=== PATIENT | female | born 1990 | race Caucasian/White ===

== ENCOUNTER 2016-08-03 13:04 | Emergency (ER) | payer SELFPAY ==
[2016-08-03 13:16] VITALS: BP 112/62
[2016-08-03] MEDS ORDERED: Ondansetron 4 MG/2 ML SDV IVPUSH ONE (13:26)
[2016-08-03] MEDS ORDERED: Sodium Chloride 0.9% 10 ML Syringe FLUSH PRN (13:26)
[2016-08-03] MEDS ORDERED: Sodium Chloride 0.9% 1,000 ML IV SCH (13:30)
--- NOTE | 2016-08-03 13:48 | EDM.PDOC ---
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 She is about 10 weeks . She is one para zero and is not had her first visit. He has been having difficulty with nausea intermittently for several weeks but more severe yesterday and today to the point of intermittent vomiting. She presented to [place] [facility] and with her being they referred her here to the ED - Related Data Allergies Allergy/AdvReac Type Severity Reaction Status Date / Time No Known Allergies Allergy Verified 08/03/16 13:11 Home Meds: Home Meds . [No Known Home Meds] 08/03/16 [History] Past Medical History - Past Health History Medical/Surgical History: Denies Medical/Surgical History Social & Family History - Tobacco Use Smoking Status *Q: Never Smoker - Recreational Drug Use Recreational Drug Use: No ED ROS GENERAL - Review of Systems Review Of Systems: See Below Constitutional: Denies: Fever, Chills, Diaphoresis HEENT: Denies: Sinus Problem, Throat Pain Respiratory: Denies: Shortness of Breath, Pleuritic Chest Pain Cardiovascular: Denies: Chest Pain GI/Abdominal: Reports: Nausea, Vomiting. Denies: Abdominal Pain, Diarrhea Musculoskeletal: Reports: No Symptoms Skin: Reports: No Symptoms Neurological: Reports: No Symptoms ED EXAM - Physical Exam Exam: See Below General Appearance: Alert, No Apparent Distress Throat/Mouth: Normal Inspection, Normal Oropharynx Head: Atraumatic Neck: Supple, Full Range of Motion Respiratory/Chest: No Respiratory Distress, Lungs Clear, Normal Breath Sounds Cardiovascular: Regular Rate, Rhythm GI/Abdominal: Soft, Non-Tender. No: Guarding, Rebound Extremities: No: Pedal Edema, Leg Pain Neurological: Alert, Oriented, No Motor/Sensory Deficits Skin Exam: Warm, Dry, Normal Color Course - Vital Signs Last Recorded V/S: Last Vital Signs Temp 98.7 F 08/03/16 13:11 Pulse 80 08/03/16 13:11 Resp 18 08/03/16 13:11 BP 112/62 08/03/16 13:11 Pulse Ox 99 08/03/16 13:11 Orthostatic Blood Pressure [ 111/77 Standing] Orthostatic Blood Pressure [ 112/62 Supine] - Orders/Labs/Meds Orders: Active Orders 24 hr Category Date Time Status Peripheral IV Care [RC] . DIRECTED Care 08/03/16 13:27 Active Sodium Chloride 0.9% [Normal Saline] 1,000 ml Med 08/03/16 13:30 Active IV ONETIME Sodium Chloride 0.9% [Saline Flush] Med 08/03/16 13:26 Active 10 ml FLUSH ASDIRECTED PRN Peripheral IV Insertion Adult [OM.PC] Stat Oth 08/03/16 13:26 Ordered Medication Orders Sodium Chloride (Normal Saline) 1,000 mls @ 999 mls/hr IV ONETIME JAYDE Last Admin: 08/03/16 13:57 Dose: 999 mls/hr Sodium Chloride (Saline Flush) 10 ml FLUSH ASDIRECTED PRN PRN Reason: Keep Vein Open Last Admin: 08/03/16 13:58 Dose: 10 ml Labs: Laboratory Tests 08/03/16 Range/Units 14:00 Urine Color Yellow (Yellow) Urine Appearance Clear (Clear) Urine pH 7.0 (5.0-8.0) Ur Specific Wiley 1.015 (1.005-1.030) Urine Protein Negative (Negative) Urine Glucose (UA) Negative (Negative) Urine Ketones Negative (Negative) Urine Occult Blood Negative (Negative) Urine Nitrite Negative (Negative) Urine Bilirubin Negative (Negative) Urine Urobilinogen 0.2 (0.2-1.0) Ur Leukocyte Esterase Negative (Negative) Urine RBC Not seen (0-5) /hpf Urine WBC 0-5 (0-5) /hpf Ur Epithelial Cells Not Reportable Ur Squamous Epith Cells 0-5 (0-5) /hpf Urine Bacteria Not seen (FEW) /hpf Urine Mucus Not seen (FEW) /hpf Meds: Medications Generic Name Dose Route Start Last Admin Trade Name Freq PRN Reason Stop Dose Admin Sodium Chloride 1,000 mls @ 999 mls/hr 08/03/16 13:30 08/03/16 13:57 Normal Saline IV 999 mls/hr ONETIME JAYDE Administration Sodium Chloride 10 ml 08/03/16 13:26 08/03/16 13:58 Saline Flush FLUSH 10 ml ASDIRECTED PRN Administration Keep Vein Open Discontinued Medications Generic Name Dose Route Start Last Admin Trade Name Travis PRN Reason Stop Dose Admin Ondansetron HCl 4 mg 08/03/16 13:26 08/03/16 13:58 Zofran IVPUSH 08/03/16 13:27 4 mg ONETIME ONE Administration - Re-Assessments/Exams Free Text/Narrative Re-Assessment/Exam: 08/03/16 14:47. Patient is doing okay with no further vomiting while here in the ED. She was doing some reading and has concerns about preeclampsia. her blood pressures have been good here in the ED and a one 12/62 range. Did explain to her that this will become more of a concern and possible risk as she gets into the second half of her . We'll continue her 1 L of normal saline. UA is normal. Discharge instructions as documented Departure - Departure Time of Disposition: 15:00 Disposition: Home, Self-Care 01 Condition: fair Clinical Impression: First trimester Vomiting Qualifiers: Vomiting type: unspecified Vomiting Intractability: non-intractable Nausea presence: with nausea Qualified Code(s): R11.2 - Nausea with vomiting, unspecified - Discharge Information Referrals: Jackson Escalona MD [Primary Care Provider] - Forms: ED Department Discharge Additional Instructions: Clear liquids for the next 2-3 hours, then very careful bland diet as tolerated , it will be best to eat very small amounts of bland food frequently as tolerated, see Dr. Ward next week as planned, return to ED as needed. - My Orders Last 24 Hours: My Active Orders 08/03/16 13:26 Sodium Chloride 0.9% [Saline Flush] 10 ml FLUSH ASDIRECTED PRN Peripheral IV Insertion Adult [OM.PC] Stat 08/03/16 13:27 Peripheral IV Care [RC] . DIRECTED 08/03/16 13:30 Sodium Chloride 0.9% [Normal Saline] 1,000 ml IV ONETIME - Assessment/Plan Last 24 Hours: My Active Orders 08/03/16 13:26 Sodium Chloride 0.9% [Saline Flush] 10 ml FLUSH ASDIRECTED PRN Peripheral IV Insertion Adult [OM.PC] Stat 08/03/16 13:27 Peripheral IV Care [RC] . DIRECTED 08/03/16 13:30 Sodium Chloride 0.9% [Normal Saline] 1,000 ml IV ONETIME
== END 2016-08-03 15:45 | disposition home or self-care (01) ==
LOC: JD.ED 13:04
DX: O21.9 Vomiting of pregnancy, unspecified (principal); Z3A.10 10 weeks gestation of pregnancy
CPT/HCPCS: 81001; 96361; 96374; 99284; J2405; J7040; J7050

== ENCOUNTER 2017-03-06 10:47 | Inpatient (IN) | payer OTHER ==
[2017-03-06] MEDS ORDERED: Sodium Chloride 0.9% 10 ML Syringe FLUSH PRN (11:20)
[2017-03-06] MEDS ORDERED: Ondansetron 4 MG/2 ML SDV IVPUSH PRN ×2 (11:20→12:18)
[2017-03-06] MEDS ORDERED: Nalbuphine 20 MG/1 ML Amp IVPUSH PRN (11:20)
[2017-03-06] MEDS: Misoprostol 25 MCG (1/4 of 100 MCG) Tab VAG SCH ×3 (12:05→20:26)
--- NOTE | 2017-03-06 12:13 | PCM.LDHP ---
L&D History of Present Illness - General Date of Service: 03/06/17 Admit Problem/Dx: Admission Diagnosis/Problem Admission Diagnosis/Problem Source of Information: Patient History Limitations: Reports: No Limitations - History of Present Illness Introduction:: 26-year-old 000 PHILIP 03/01/17 at estimated gestational age of 40 weeks and 5 days. Group B strep negative patient presented to labor and delivery for induction of labor. First 25 g Cytotec placed at 1205 hrs. approximately intravaginal. Will repeat every 4 hours 3 doses total and then begin Pitocin at midnight. Cervix is 1 cm 50% soft posterior vertex -3. Blood type A positive antibody screen negative on 08/07/16 hemoglobin hematocrit 12.2/36.5 platelets 260,000. Pap test negative rubella immune, serology nonreactive, urine culture mixed radha, appetite is B surface antigen negative, HIV negative, GC and chlamydia probe negative. 12/05/16 hemoglobin hematocrit 9.5/29.2 platelets 230, 001 hour OB glucose screen 124. Repeat hemoglobin hematocrit 02/03/17 showed 10.0/30.9 platelets 219,000. Ultrasound 08/29/16 at 13 weeks 2 days estimated gestational age of 12/12/17, LMP PHILIP 03/01/17. Ultrasound on 10/18/16 at 20 weeks 5 days estimated gestational age 20 weeks 5 days and PHILIP 03/02/17. Ultrasound on 02/17/17 PHILIP of 03/01/17 estimated gestational age 38 weeks 2 days. Improves with: Reports: None Worsens with: Reports: None Associated Symptoms: Reports: N - Related Data Allergies/Adverse Reactions: Allergies Allergy/AdvReac Type Severity Reaction Status Date / Time No Known Allergies Allergy Verified 08/03/16 13:11 Home Medications: Home Meds . [No Known Home Meds] 08/03/16 [History] Past Medical History - Past Health History Medical/Surgical History: Denies Medical/Surgical History : 1 Para: 0 (0000) Social & Family History - Tobacco Use Smoking Status *Q: Never Smoker - Recreational Drug Use Recreational Drug Use: No H&P Review of Systems - Review of Systems: Review Of Systems: See Below General: Reports: No Symptoms HEENT: Reports: No Symptoms Pulmonary: Reports: No Symptoms Cardiovascular: Reports: No Symptoms Gastrointestinal: Reports: No Symptoms Genitourinary: Reports: No Symptoms Musculoskeletal: Reports: No Symptoms Skin: Reports: No Symptoms Psychiatric: Reports: No Symptoms Neurological: Reports: No Symptoms Hematologic/Lymphatic: Reports: No Symptoms Immunologic: Reports: No Symptoms L&D Exam - Exam Exam: See Below - Vital Signs Weight: 241 lb 11.2 oz - OB Specific Fundal Height In cm: 39 Movement: Active Heart Tones: Present Heart Tones per Min: 130 Heart Rate (FHR) Variability: Moderate (6-25 bmp) Presentation: Vertex - Holder Score Holder Score Cervix Position: Posterior Holder Score Consistency: Soft Holder Score Effacement: 31-50% Holder Score Dilation: 1-2 cm Holder Score 's Station: -3 Holder Score Total: 4 - Exam General: Alert, Oriented HEENT: Conjunctiva Clear, Mucosa Moist & [place], PERRLA Neck: Supple, Trachea Midline Lungs: Clear to Auscultation, Normal Respiratory Effort Cardiovascular: Regular Rate, Regular Rhythm GI/Abdominal Exam: Normal Bowel Sounds, Soft, Non-Tender, No Organomegaly, No Distention, No Abnormal Bruit, No Mass, Pelvis Stable Genitourinary: Normal external exam, Normal bimanual exam, Normal speculum exam Extremities: Normal Inspection, Normal Range of Motion, Non-Tender, No Pedal Edema, Normal Capillary Refill Skin: Warm, Dry, Intact Neurological: Reflexes Equal Bilateral Psychiatric: Alert, Normal Affect, Normal Mood - Problem List (1) 40 weeks gestation of SNOMED Code(s): 31790816 ICD Code: Z3A.40 - 40 WEEKS GESTATION OF Status: Acute Current Visit: Yes Problem List Initiated/Reviewed/Updated: No Orders Last 24hrs: Active Orders 24 hr Category Date Time Status Activity as Tolerated [RC] PFP Care 03/06/17 11:21 Active Communication Order [RC] ASDIRECTED Care 03/06/17 11:21 Active Heart Tones [RC] ASDIRECTED Care 03/06/17 11:21 Active Notify Provider [RC] PFP Care 03/06/17 11:21 Active Notify Provider [RC] PRN Care 03/06/17 11:21 Active Peripheral IV Care [RC] . DIRECTED Care 03/06/17 11:21 Active Vital Signs [RC] PER UNIT ROUTINE Care 03/06/17 11:21 Active Regular Diet [DIET] Diet 03/06/17 Breakfast Active CBC WITH AUTO DIFF [HEME] Stat Lab 03/06/17 11:39 Ordered TYPE AND SCREEN [BBK] Stat Lab 03/06/17 11:39 Ordered Lactated Ringers [Ringers, Lactated] 1,000 ml Med 03/06/17 11:30 Active IV ASDIRECTED Misoprostol [Cytotec] Med 03/06/17 13:00 Active 25 mcg VAG Q4HR Nalbuphine [Nubain] Med 03/06/17 11:20 Active 10 mg IVPUSH Q2H PRN Ondansetron [Zofran] Med 03/06/17 11:20 Active 4 mg IVPUSH Q4H PRN Oxytocin [Pitocin] 20 unit Med 03/06/17 12:00 Active Lactated Ringers [Ringers, Lactated] 1,000 ml IV TITRATE Oxytocin/Lactated Ringers [Pitocin in LR 10 Units/1,000 Med 03/06/17 11:30 Active ML] 10 unit in 1,000 ml IV TITRATE Sodium Chloride 0.9% [Saline Flush] Med 03/06/17 11:20 Active 10 ml FLUSH ASDIRECTED PRN Electronic Heart Tones Ext w TOCO [WOMSER] Oth 03/06/17 11:21 Ordered Routine Electronic Heart Tones Internal [WOMSER] Per Unit Oth 03/06/17 11:21 Ordered Routine Peripheral IV Insertion Adult [OM.PC] Routine Oth 03/06/17 11:21 Ordered Resuscitation Status Routine Resus Stat 03/06/17 11:20 Ordered Medication Orders Lactated Ringer's (Ringers, Lactated) 1,000 mls @ 100 mls/hr IV ASDIRECTED JAYDE Oxytocin/Lactated Ringer's (Pitocin In Lr 10 Units/1,000 Ml) 10 unit in 1,000 mls @ 12 mls/hr IV TITRATE JAYDE; 2 MUNITS/MIN PRN Reason: Protocol Oxytocin 20 unit/ Lactated (Ringer's) 1,002 mls @ 1,503 mls/hr IV TITRATE JAYDE; 500 MUNITS/MIN PRN Reason: Protocol Misoprostol (Cytotec) 25 mcg VAG Q4HR JAYDE Stop: 03/06/17 21:01 Last Admin: 03/06/17 12:05 Dose: 25 mcg Nalbuphine HCl (Nubain) 10 mg IVPUSH Q2H PRN PRN Reason: Pain (moderate 4-6) Ondansetron HCl (Zofran) 4 mg IVPUSH Q4H PRN PRN Reason: Nausea/Vomiting Sodium Chloride (Saline Flush) 10 ml FLUSH ASDIRECTED PRN PRN Reason: Keep Vein Open Assessment/Plan Comment:: Induction of labor and delivery.
[2017-03-06] MEDS ORDERED: ePHEDrine 50 MG/ML SDV IVPUSH PRN (12:18)
[2017-03-06] MEDS ORDERED: fentaNYL 100 MCG/2 ML SDV EPIDUR PRN (12:18)
--- NOTE | 2017-03-06 14:36 | PCM.PREANE ---
Preanesthetic Assessment - Anesthesia/Transfusion/Family Hx Anesthesia History: No Prior Anesthesia Family History of Anesthesia Reaction: No Transfusion History: No Prior Transfusion(s) Intubation History: Unknown - Review of Systems General: No Symptoms Pulmonary: No Symptoms Cardiovascular: No Symptoms Gastrointestinal: No Symptoms, Nausea Neurological: No Symptoms (History of motion sickness) Other: Reports: None, Sinus Problem, Anxiety - Physical Assessment NPO Status Date: 03/06/17 NPO Status Time: 14:00 Pulse: 80 O2 Sat by Pulse Oximetry: 99 Respiratory Rate: 20 Blood Pressure: 121/71 Temperature: 36.4 C Height: 1.57 m Weight: 109.633 kg ASA Class: 2 Mental Status: Alert & Oriented x3 Airway Class: Mallampati = 2 Dentition: Reports: Normal Dentition, Caries Thyro-Mental Finger Breadths: 3 Mouth Opening Finger Breadths: 3 ROM/Head Extension: Full Lungs: Clear to Auscultation, Normal Respiratory Effort Cardiovascular: Regular Rate, Regular Rhythm, No Murmurs - Lab Values: Laboratory Last Values WBC 9.73 K/mm3 (3.98-10.04) 03/06/17 12:05 RBC 3.80 M/mm3 (3.98-5.22) L 03/06/17 12:05 Hgb 10.6 gm/L (11.2-15.7) L 03/06/17 12:05 Hct 32.9 % (34.1-44.9) L 03/06/17 12:05 MCV 86.6 fl (79.4-94.8) 03/06/17 12:05 MCH 27.9 pg (25.6-32.2) 03/06/17 12:05 MCHC 32.2 g/dl (32.2-35.5) 03/06/17 12:05 RDW Std Deviation 53.7 fL (36.4-46.3) H 03/06/17 12:05 Plt Count 196 K/mm3 (182-369) 03/06/17 12:05 MPV 11.1 fl (9.4-12.3) 03/06/17 12:05 Neut % (Auto) 65.1 % (34.0-71.1) 03/06/17 12:05 Lymph % (Auto) 24.6 % (19.3-51.7) 03/06/17 12:05 [place] % (Auto) 8.2 % (4.7-12.5) 03/06/17 12:05 Eos % (Auto) 0.9 (0.7-5.8) 03/06/17 12:05 Baso % (Auto) 0.3 % (0.1-1.2) 03/06/17 12:05 Neut # (Auto) 6.33 K/mm3 (1.56-6.13) H 03/06/17 12:05 Lymph # (Auto) 2.39 K/mm3 (1.18-3.74) 03/06/17 12:05 [place] # (Auto) 0.80 K/mm3 (0.24-0.36) H 03/06/17 12:05 Eos # (Auto) 0.09 K/mm3 (0.04-0.36) 03/06/17 12:05 Baso # (Auto) 0.03 K/mm3 (0.01-0.08) 03/06/17 12:05 Manual Slide Review Abnormal smear 03/06/17 12:05 Blood Type A POSITIVE 03/06/17 12:05 Gel Antibody Screen Negative 03/06/17 12:05 All Labs values reviewed and noted and within acceptable ranges to proceed with procedure. - Allergies Allergies/Adverse Reactions: Allergies Allergy/AdvReac Type Severity Reaction Status Date / Time No Known Allergies Allergy Verified 08/03/16 13:11 - Anesthesia Plan Pre-Op Medication Ordered: None - Acknowledgements Anesthesia Type Planned: Epidural Pt an Appropriate Candidate for the Planned Anesthesia: Yes Alternatives and Risks of Anesthesia Discussed w Pt/Guardian: Yes Pt/Guardian Understands and Agrees with Anesthesia Plan: Yes PreAnesthesia Questionnaire - Past Health History Medical/Surgical History: Denies Medical/Surgical History - SUBSTANCE USE Smoking Status *Q: Never Smoker Recreational Drug Use History: No - HOME MEDS Home Medications: Home Meds . [No Known Home Meds] 08/03/16 [History] - CURRENT (IN HOUSE) MEDS Current Meds: Current Medications Ephedrine Sulfate (Ephedrine Sulfate) 5 mg IVPUSH ASDIRECTED PRN PRN Reason: Hypotension Fentanyl (Sublimaze) 100 mcg EPIDUR Q3H PRN PRN Reason: Pain Lactated Ringer's (Ringers, Lactated) 1,000 mls @ 100 mls/hr IV ASDIRECTED JAYDE Oxytocin/Lactated Ringer's (Pitocin In Lr 10 Units/1,000 Ml) 10 unit in 1,000 mls @ 12 mls/hr IV TITRATE JAYDE; 2 MUNITS/MIN PRN Reason: Protocol Oxytocin 20 unit/ Lactated (Ringer's) 1,002 mls @ 1,503 mls/hr IV TITRATE JAYDE; 500 MUNITS/MIN PRN Reason: Protocol Misoprostol (Cytotec) 25 mcg VAG Q4HR JAYDE Stop: 03/06/17 21:01 Last Admin: 03/06/17 12:05 Dose: 25 mcg Nalbuphine HCl (Nubain) 10 mg IVPUSH Q2H PRN PRN Reason: Pain (moderate 4-6) Ondansetron HCl (Zofran) 4 mg IVPUSH Q4H PRN PRN Reason: Nausea/Vomiting Ondansetron HCl (Zofran) 4 mg IVPUSH ONETIME PRN PRN Reason: Nausea/Vomiting Sodium Chloride (Saline Flush) 10 ml FLUSH ASDIRECTED PRN PRN Reason: Keep Vein Open
[2017-03-07] MEDS: Lactated Ringers 1,000 ML IV SCH ×6 (00:15→14:26)
[2017-03-07] MEDS: Oxytocin/Lactated Ringers 10 UNIT/1,000 ML BAG IV SCH ×3 (00:22→23:17)
--- NOTE | 2017-03-07 08:53 | PCM.SN ---
- Free Text/Narrative Note: Afebrile. Amniotomy performed, clear fluid. Cervix 2, 60%, soft, posterior, vertex-2 Cat I FHR.
[2017-03-07] MEDS ORDERED: diphenhydrAMINE 50 MG/ML SDV IVPUSH PRN (10:18)
[2017-03-07] MEDS: Bupivacaine/fentaNYL/NS 100 ML Bag EPIDUR SCH ×2 (11:05→19:08)
--- NOTE | 2017-03-07 15:19 | PCM.SN ---
- Free Text/Narrative Note: Cervix at 1455 3 cm, 70% effaced, soft, mid-position, vertex -1 suspect occiput posterior. EFW 9 pounds. IUPC placed after exam. Contractions q2-4, appear adequate. Discussed progress (or lack thereof) and size of baby (FOB weighed 13 pounds at delivery).EFW on 02/17/17 USG 3486 gms/7#11 oz . Discussed possible section if need be.
--- NOTE | 2017-03-07 17:01 | PCM.SN ---
- Free Text/Narrative Note: Cervix has changed from 1500 exam. Now 4-5, 90-100% effaced, soft, mid- position. Vertex -1. Having adequate contractions. Cat I FHR. Dr Cannon given report and will assume care. Patient informed of his assuming coverage and she and in agreement.
--- NOTE | 2017-03-07 22:08 | PCM.SN ---
- Free Text/Narrative Note: Ester is a 26-year-old 1 para 1001 white female was admitted on at approximately 1100 hrs. for elective induction of labor at 40-4/7 weeks gestational age. She initially was treated with Cytotec and then with Pitocin and artificial rupture membranes. She made very slow progress until approximately 5 PM on 03/07/2017 at which time, after an epidural was placed, the patient did progress up to 5 cm and then from that point on progressed fairly rapidly up to complete cervical dilation by approximately 2000 hrs. She began pushing at that time and at 2127 hrs. she delivered a viable, knowles, male infant with a weight of 4060 g (8 pounds 15.2 ounces), a length of 21.5 inches in a direct occiput anterior position over a second-degree perineal laceration and an accompanying right medial labia minora laceration which was superficial in nature. After delivery of the baby the baby was placed on mom's abdomen. Nose and mouth were bulb suctioned baby was dried and stimulated. The umbilical cord was clamped 2 and cut the patient's . Cord blood is then obtained. The placenta delivered in a [place] presentation, appeared complete and intact. It had a three-vessel cord. It was discarded per patient desire. Estimated blood loss was approximately 500 mL. Pitocin was started after delivery of the baby to facilitate increase in uterine tone and decreased bleeding. The lacerations were repaired with a perineal laceration repair a routine second- degree laceration repair with 3-0 Monocryl. The right labia minor are laceration was repaired with 2 interrupted sutures of 3-0 Monocryl. Patient plans to breast-feed the baby. Condition was good.
[2017-03-07] MEDS ORDERED: Acetaminophen 325 MG Tab PO PRN (22:59)
[2017-03-07] MEDS ORDERED: Witch Hazel Medicated Pads 100/Jar TOP PRN (22:59)
[2017-03-07] MEDS ORDERED: Benzocaine/Menthol 20%-0.5% Spray 56 GM Canister TOP PRN (22:59)
[2017-03-07] MEDS ORDERED: Lanolin 100% Cream 7 GM Tube TOP PRN (22:59)
[2017-03-08] MEDS: Ibuprofen 600 MG Tab PO PRN ×3 (01:52→14:38)
[2017-03-08] MEDS: Prenatal Multivitamin with Calcium/Folic Acid/Iron Tab PO SCH (09:14)
--- NOTE | 2017-03-08 09:51 | PCM.SN ---
- Free Text/Narrative Note: day onedoing well. Patient has minimal lochia, was voiding well, is ambulating without concerns he is nursing. Vital signs stable, patient is afebrile. Abdomen is soft, flat, nontender with uterus just below the umbilicus. Legs show 1+ edema otherwise are unremarkable. Assessment/end: day 1. Normal progress. Home tomorrow.
--- NOTE | 2017-03-08 11:08 | PCM48HPAN ---
Post Anesthesia Note - EVALUATION WITHIN 48HRS OF ANESTHETIC Vital Signs in Normal Range: Yes Patient Participated in Evaluation: Yes Respiratory Function Stable: Yes Airway Patent: Yes Cardiovascular Function Stable: Yes Hydration Status Stable: Yes Pain Control Satisfactory: Yes Nausea and Vomiting Control Satisfactory: Yes Mental Status Recovered: Yes
[2017-03-08] MEDS: Docusate Sodium 100 MG Cap PO PRN (20:58)
[2017-03-09] MEDS: Ibuprofen 600 MG Tab PO PRN (03:04)
[2017-03-09 09:52] VITALS: BP 125/76
[2017-03-09] MEDS: Prenatal Multivitamin with Calcium/Folic Acid/Iron Tab PO SCH (09:58)
--- NOTE | 2017-03-09 10:07 | PCM.DCSUM1 ---
Discharge Summary - Hospital Course Free Text/Narrative:: Ester is a 26-year-old 1 para 1001 white female was admitted on at approximately 1100 hrs. for elective induction of labor at 40-4/7 weeks gestational age. She initially was treated with Cytotec and then with Pitocin and artificial rupture membranes. She made very slow progress until approximately 5 PM on 03/07/2017 at which time, after an epidural was placed, the patient did progress up to 5 cm and then from that point on progressed fairly rapidly up to complete cervical dilation by approximately 2000 hrs. She began pushing at that time and at 2127 hrs. she delivered a viable, knowles, male with a weight of 4060 g (8 pounds 15.2 ounces), a length of 21.5 inches in a direct occiput anterior position over a second-degree perineal laceration and an accompanying right medial labia minora laceration which was superficial in nature. After delivery of the baby the baby was placed on mom's abdomen. Nose and mouth were bulb suctioned baby was dried and stimulated. The umbilical cord was clamped 2 and cut the patient's . Cord blood is then obtained. The placenta delivered in a [place] presentation, appeared complete and intact. It had a three-vessel cord. It was discarded per patient desire. Estimated blood loss was approximately 500 mL. Pitocin was started after delivery of the baby to facilitate increase in uterine tone and decreased bleeding. The lacerations were repaired with a perineal laceration repair a routine second- degree laceration repair with 3-0 Monocryl. The right labia minor are laceration was repaired with 2 interrupted sutures of 3-0 Monocryl. Patient plans to breast-feed the baby. Vital signs stable. Patient is doing well. She is ready for discharge. - Discharge Data Discharge Date: 03/09/17 Discharge Disposition: Home, Self-Care 01 Condition: Good - Patient Instructions Diet: Regular Diet as Tolerated (Nursing diet with increased calories and calcium is recommended) Activity: As Tolerated (No intercourse or tampons until bleeding resolves) Driving: May Drive Today Showering/Bathing: May Shower (May take a bath) Notify Provider of: Fever, Increased Pain, Swelling and Redness, Nausea and/or Vomiting - Discharge Plan Home Medications: Home Meds Ibuprofen [IJD: Ibuprofen] 600 mg PO Q4H PRN tablet 03/09/17 [Rx] Vit with Ca/FA/Iron [ Plus Iron] 1 each PO DAILY tablet [Rx] Patient Handouts: Home Care Instructions for Mom Referrals: Jackson Escalona MD [Physician] - (call and schedule appointment for 2 weeks) - Discharge Summary/Plan Comment DC Time >30 min.: No Discharge Summary/Plan Comment: Discharge instructions: 1. Discharge home 2. Diet, activity and follow-up discussed with patient. Recommend nursing diet with increased calories and calcium. 3. Precautions given concern increased pain, bleeding, temperature, signs/ symptoms of DVT/PE. 4. Medications per home medication was printed, discussed with and given to the patient. 5. Return to clinic-Dr. Escalona[facility] in 2 weeks. Diagnosis: Term -delivered Condition: Good - Patient Data Vitals - Most Recent: Last Vital Signs Temp 36.5 C 03/09/17 07:57 Pulse 77 03/09/17 07:57 Resp 16 03/09/17 07:57 BP 125/76 03/09/17 07:57 Pulse Ox 100 03/09/17 07:57 Weight - Most Recent: 109.633 kg I&O - Last 24 hours: Intake & Output 03/08/17 03/09/17 03/09/17 22:59 06:59 14:59 Intake Total 0 Balance 0 Med Orders - Current: Current Medications Acetaminophen (Tylenol) 650 mg PO Q4H PRN PRN Reason: mild pain or fever Benzocaine/Menthol (Dermoplast Pain Relief [place]) 0 gm TOP ASDIRECTED PRN PRN Reason: Perineal Comfort Measure Last Admin: 03/08/17 01:52 Dose: 1 applic Docusate Sodium (Colace) 100 mg PO BID PRN PRN Reason: Constipation Last Admin: 03/08/17 20:58 Dose: 100 mg Emollient Ointment (Lansinoh Hpa) 0 gm TOP ASDIRECTED PRN PRN Reason: Sore Nipples Ibuprofen (Motrin) 600 mg PO Q4H PRN PRN Reason: Mild pain or fever Last Admin: 03/09/17 03:04 Dose: 600 mg Prenat Multivit/Randall/Iron/Folic Ac ( Plus Iron) 1 each PO DAILY JAYDE Last Admin: 03/09/17 09:58 Dose: Not Given Nelly Murguia (Tucks) 1 pad TOP ASDIRECTED PRN PRN Reason: Hemorrhoid pain Last Admin: 03/08/17 01:51 Dose: 1 pad Discontinued Medications Diphenhydramine HCl (Benadryl) 25 mg IVPUSH Q6H PRN PRN Reason: Pruritis Ephedrine Sulfate (Ephedrine Sulfate) 5 mg IVPUSH ASDIRECTED PRN PRN Reason: Hypotension Fentanyl (Sublimaze) 100 mcg EPIDUR Q3H PRN PRN Reason: Pain Last Admin: 03/07/17 11:04 Dose: 100 mcg Fentanyl/Bupivacaine HCl (Fentanyl/Bupivacaine/Ns 2 Mcg-0.125% 100 Ml) 100 ml EPIDUR ASDIRECTED JAYDE Last Admin: 03/07/17 19:08 Dose: 100 ml Lactated Ringer's (Ringers, Lactated) 1,000 mls @ 100 mls/hr IV ASDIRECTED JAYDE Last Admin: 03/07/17 14:26 Dose: 125 mls/hr Oxytocin/Lactated Ringer's (Pitocin In Lr 10 Units/1,000 Ml) 10 unit in 1,000 mls @ 12 mls/hr IV TITRATE JAYDE; 2 MUNITS/MIN PRN Reason: Protocol Last Admin: 03/07/17 23:17 Dose: 250 mls/hr Oxytocin 20 unit/ Lactated (Ringer's) 1,002 mls @ 1,503 mls/hr IV TITRATE JAYDE; 500 MUNITS/MIN PRN Reason: Protocol Misoprostol (Cytotec) 25 mcg VAG Q4HR JAYDE Stop: 03/06/17 21:01 Last Admin: 03/06/17 20:26 Dose: 25 mcg Nalbuphine HCl (Nubain) 10 mg IVPUSH Q2H PRN PRN Reason: Pain (moderate 4-6) Ondansetron HCl (Zofran) 4 mg IVPUSH Q4H PRN PRN Reason: Nausea/Vomiting Last Admin: 03/07/17 11:05 Dose: 4 mg Ondansetron HCl (Zofran) 4 mg IVPUSH ONETIME PRN PRN Reason: Nausea/Vomiting Sodium Chloride (Saline Flush) 10 ml FLUSH ASDIRECTED PRN PRN Reason: Keep Vein Open *Q Meaningful Use (DIS) - VTE *Q VTE Criteria *Q: - Stroke *Q Stroke Criteria *Q: - AMI *Q AMI Criteria *Q:
[2017-03-09] MEDS: Docusate Sodium 100 MG Cap PO PRN (10:21)
== END 2017-03-09 10:30 | disposition home or self-care (01) | DRG 775 ==
LOC: JD.OBCHECK 10:47 → JD.OB 10:48 → JD.OBCHECK 15:07 → JD.OB 15:08 → OBSVTOIN 03-07 21:27
PROVIDERS: ADMIT Obstetrics & Gynecology; ATTEND Obstetrics & Gynecology
PROC: 10E0XZZ Delivery of Products of Conception, External Approach (ICD-10-PCS; principal; 2017-03-07)
PROC: 0KQM0ZZ Repair Perineum Muscle, Open Approach (ICD-10-PCS; 2017-03-07)
PROC: 3E0P7VZ Introduction of Hormone into Female Reproductive, Via Natural or Artificial Opening (ICD-10-PCS; 2017-03-07)
PROC: 3E0P3VZ Introduction of Hormone into Female Reproductive, Percutaneous Approach (ICD-10-PCS; 2017-03-07)
PROC: 10907ZC Drainage of Amniotic Fluid, Therapeutic from Products of Conception, Via Natural or Artificial Opening (ICD-10-PCS; 2017-03-07)
PROC: 00HU33Z Insertion of Infusion Device into Spinal Canal, Percutaneous Approach (ICD-10-PCS; 2017-03-07)
PROC: 3E0R3BZ Introduction of Anesthetic Agent into Spinal Canal, Percutaneous Approach (ICD-10-PCS; 2017-03-07)
DX: O48.0 Post-term pregnancy (principal); Z3A.41 41 weeks gestation of pregnancy; Z37.0 Single live birth; O70.1 Second degree perineal laceration during delivery
CPT/HCPCS: 36415; 51702; 59300; 59409; 85025; 85027; 86850; 86900; 86901; A9270-GY; J2405; J2590; J3010; J7120

== ENCOUNTER 2018-07-16 17:26 | Emergency (ER) | payer OTHER ==
[2018-07-16] MEDS ORDERED: Sodium Chloride 0.9% 10 ML Syringe FLUSH PRN (17:39)
[2018-07-16 17:46] VITALS: BP 123/67
--- NOTE | 2018-07-16 18:12 | EDM.PDOC ---
ED HPI GENERAL MEDICAL PROBLEM - General Chief Complaint: CT SCAN TECH Problem Stated Complaint: 18 WEEKS /HEAVY BLEEDING Time Seen by Provider: 07/16/18 17:38 Source of Information: Reports: Patient History Limitations: Reports: No Limitations - History of Present Illness INITIAL COMMENTS - FREE TEXT/NARRATIVE: 28 y/o female G2 Para 1 presents to ER with cc vaginal bleeding. She states she was watching TV when she felt a gush of fluid coming from her vagina. She reports she had moderate amount of bleeding and a small mucous plug. She denies back pain, chills, fever, dysuria, nausea or vomiting. She states she has a history of subchorionic hemorrhage. Her previous went to full term with no complications. She reports having mild cramping a 4/10. Her OB is Dr. Cannon. She is accompanied by her . Onset: Today, Sudden Onset Date: 07/16/18 Onset Time: 16:30 Duration: Resolved Prior to Arrival Location: Reports: Other (vaginal bleeding) Quality: Reports: Ache Severity: Mild Improves with: Reports: None Worsens with: Reports: None Associated Symptoms: Denies: Fever/Chills, Nausea/Vomiting - Related Data Allergies Allergy/AdvReac Type Severity Reaction Status Date / Time No Known Allergies Allergy Verified 03/06/17 19:02 Home Meds: Home Meds Ibuprofen [IJD: Ibuprofen] 600 mg PO Q4H PRN tablet 03/09/17 [Rx] Vit with Ca/FA/Iron [ Plus Iron] 1 each PO DAILY tablet [Rx] Past Medical History - Past Health History Medical/Surgical History: Denies Medical/Surgical History HEENT History: Reports: Sinusitis CT SCAN TECH History: Reports: Social & Family History - Family History Family Medical History: Noncontributory - Tobacco Use Smoking Status *Q: Never Smoker - Caffeine Use Caffeine Use: Reports: Coffee - Recreational Drug Use Recreational Drug Use: No ED ROS GENERAL - Review of Systems Review Of Systems: See Below Constitutional: Denies: Fever, Chills HEENT: Reports: No Symptoms Respiratory: Denies: Shortness of Breath Cardiovascular: Denies: Chest Pain Endocrine: Denies: Fatigue GI/Abdominal: Denies: Abdominal Pain, Constipation, Diarrhea, Nausea, Vomiting : Reports: Discharge, Other (vaginal bleeding). Denies: Dysuria Musculoskeletal: Denies: Back Pain Skin: Reports: No Symptoms Neurological: Reports: No Symptoms Psychiatric: Reports: No Symptoms Hematologic/Lymphatic: Reports: No Symptoms Immunologic: Reports: No Symptoms ED EXAM - Physical Exam Exam: See Below Exam Limited By: No Limitations General Appearance: Alert, WD/WN, No Apparent Distress Respiratory/Chest: No Respiratory Distress, Lungs Clear, Normal Breath Sounds, No Accessory Muscle Use, Chest Non-Tender Cardiovascular: Normal Peripheral Pulses, Regular Rate, Rhythm, No Edema, No Gallop, No JVD, No Murmur, No Rub GI/Abdominal Exam: Normal Bowel Sounds, Soft, Non-Tender, No Organomegaly, No Distention, No Abnormal Bruit, No Mass, Pelvis Stable (Female) Exam: Normal External Exam, Normal Speculum Exam, Cervical Discharge (old dark brown/bloody fluid from oz, moderate amount) Heart Tones: Present Heart Tones per Min: 161 Movement: Active Back Exam: Normal Inspection, Full Range of Motion Extremities: Normal Inspection, Normal Range of Motion, Non-Tender, No Pedal Edema, Normal Capillary Refill Neurological: Alert, Oriented, CN II-XII Intact, Normal Cognition, Normal Gait, Normal Reflexes, No Motor/Sensory Deficits Psychiatric: Normal Affect, Normal Mood Skin Exam: Warm, Dry, Intact, Normal Color, No Rash Lymphatic: No Adenopathy Course - Vital Signs Last Recorded V/S: Last Vital Signs Temp 97.9 F 07/16/18 17:40 Pulse 84 07/16/18 17:40 Resp 16 07/16/18 17:40 BP 123/67 07/16/18 17:40 Pulse Ox 100 07/16/18 17:40 - Orders/Labs/Meds Orders: Active Orders 24 hr Category Date Time Status Sodium Chloride 0.9% [Normal Saline] 1,000 ml Med 07/16/18 18:30 Ordered IV ASDIRECTED Sodium Chloride 0.9% [Saline Flush] Med 07/16/18 17:39 Active 10 ml FLUSH ASDIRECTED PRN Saline Lock Insert [OM.PC] Routine Oth 07/16/18 17:39 Ordered Medication Orders Sodium Chloride (Normal Saline) 1,000 mls @ 999 mls/hr IV ASDIRECTED JAYDE Last Admin: 07/16/18 18:26 Dose: 999 mls/hr Sodium Chloride (Saline Flush) 10 ml FLUSH ASDIRECTED PRN PRN Reason: Keep Vein Open Last Admin: 07/16/18 18:03 Dose: 10 ml Labs: Laboratory Tests 07/16/18 07/16/18 07/16/18 Range/Units 17:50 17:50 17:50 WBC 8.24 (3.98-10.04) K/mm3 RBC 3.71 L (3.98-5.22) M/mm3 Hgb 10.8 L (11.2-15.7) gm/L Hct 32.1 L (34.1-44.9) % MCV 86.5 (79.4-94.8) fl MCH 29.1 (25.6-32.2) pg MCHC 33.6 (32.2-35.5) g/dl RDW Std Deviation 42.2 (36.4-46.3) fL Plt Count 205 (182-369) K/mm3 MPV 11.6 (9.4-12.3) fl Neut % (Auto) 64.7 (34.0-71.1) % Lymph % (Auto) 27.7 (19.3-51.7) % [place]ack[place] % (Auto) 5.7 (4.7-12.5) % Eos % (Auto) 1.6 (0.7-5.8) Baso % (Auto) 0.1 (0.1-1.2) % Neut # (Auto) 5.33 (1.56-6.13) K/mm3 Lymph # (Auto) 2.28 (1.18-3.74) K/mm3 Bracken # (Auto) 0.47 H (0.24-0.36) K/mm3 Eos # (Auto) 0.13 (0.04-0.36) K/mm3 Baso # (Auto) 0.01 (0.01-0.08) K/mm3 Sodium 139 (136-145) mEq/L Potassium 3.4 L (3.5-5.1) mEq/L Chloride 105 (98-107) mEq/L Carbon Dioxide 21 (21-32) mEq/L Anion Gap 16.4 H (5-15) BUN 6 L (7-18) mg/dL Creatinine 0.9 (0.55-1.02) mg/dL Est Cr Clr Drug Dosing 73.60 mL/min Estimated GFR (MDRD) > 60 (>60) mL/min BUN/Creatinine Ratio 6.7 L (14-18) Glucose 124 H (74-106) mg/dL Calcium 8.8 (8.5-10.1) mg/dL Total Bilirubin 0.2 (0.2-1.0) mg/dL AST 13 L (15-37) U/L ALT 16 (14-59) U/L Alkaline Phosphatase 60 (46-116) U/L Total Protein 6.6 (6.4-8.2) g/dl Albumin 3.0 L (3.4-5.0) g/dl Globulin 3.6 gm/dL Albumin/Globulin Ratio 0.8 L (1-2) HCG, Quant 8956.0 mIU/mL Urine Color (Yellow) Urine Appearance (Clear) Urine pH (5.0-8.0) Ur Specific [place] (1.005-1.030) Urine Protein (Negative) Urine Glucose (UA) (Negative) Urine Ketones (Negative) Urine Occult Blood (Negative) Urine Nitrite (Negative) Urine Bilirubin (Negative) Urine Urobilinogen (0.2-1.0) Ur Leukocyte Esterase (Negative) Blood Type A POSITIVE 07/16/18 Range/Units 17:55 WBC (3.98-10.04) K/mm3 RBC (3.98-5.22) M/mm3 Hgb (11.2-15.7) gm/L Hct (34.1-44.9) % MCV (79.4-94.8) fl MCH (25.6-32.2) pg MCHC (32.2-35.5) g/dl RDW Std Deviation (36.4-46.3) fL Plt Count (182-369) K/mm3 MPV (9.4-12.3) fl Neut % (Auto) (34.0-71.1) % Lymph % (Auto) (19.3-51.7) % [place]ack[place] % (Auto) (4.7-12.5) % Eos % (Auto) (0.7-5.8) Baso % (Auto) (0.1-1.2) % Neut # (Auto) (1.56-6.13) K/mm3 Lymph # (Auto) (1.18-3.74) K/mm3 [place] # (Auto) (0.24-0.36) K/mm3 Eos # (Auto) (0.04-0.36) K/mm3 Baso # (Auto) (0.01-0.08) K/mm3 Sodium (136-145) mEq/L Potassium (3.5-5.1) mEq/L Chloride (98-107) mEq/L Carbon Dioxide (21-32) mEq/L Anion Gap (5-15) BUN (7-18) mg/dL Creatinine (0.55-1.02) mg/dL Est Cr Clr Drug Dosing mL/min Estimated GFR (MDRD) (>60) mL/min BUN/Creatinine Ratio (14-18) Glucose (74-106) mg/dL Calcium (8.5-10.1) mg/dL Total Bilirubin (0.2-1.0) mg/dL AST (15-37) U/L ALT (14-59) U/L Alkaline Phosphatase (46-116) U/L Total Protein (6.4-8.2) g/dl Albumin (3.4-5.0) g/dl Globulin gm/dL Albumin/Globulin Ratio (1-2) HCG, Quant mIU/mL Urine Color Yellow (Yellow) Urine Appearance Slt cloudy H (Clear) Urine pH 6.0 (5.0-8.0) Ur Specific [place] 1.025 (1.005-1.030) Urine Protein Trace H (Negative) Urine Glucose (UA) Negative (Negative) Urine Ketones Trace H (Negative) Urine Occult Blood 3+ H (Negative) Urine Nitrite Negative (Negative) Urine Bilirubin Negative (Negative) Urine Urobilinogen 0.2 (0.2-1.0) Ur Leukocyte Esterase Trace H (Negative) Blood Type Meds: Medications Generic Name Dose Route Start Last Admin Trade Name Freq PRN Reason Stop Dose Admin Sodium Chloride 1,000 mls @ 999 mls/hr 07/16/18 18:30 07/16/18 18:26 Normal Saline IV 999 mls/hr ASDIRECTED JAYDE Administration Sodium Chloride 10 ml 07/16/18 17:39 07/16/18 18:03 Saline Flush FLUSH 10 ml ASDIRECTED PRN Administration Keep Vein Open - Re-Assessments/Exams Free Text/Narrative Re-Assessment/Exam: 07/16/181929 Spoke with Dr. Joyce (broadcast director operations OB). He feels the bleeding is probably due to subchorionic hemorrhage. He recommends she have no sex, douche or tampons. To follow up with Dr. Cannon next week. Also to follow up with OB if she has increased bleeding or to return to the ER. 07/16/18 19:56 28 y/o female presents to ER with cc vaginal bleeding and being 18 weeks . She does have a history of chorionic hemorrhage. Her ultrasound revealed IUP 18 weeks 2 days FHT 144. fundal with o findings of placenta previa or abruption amniotic fluid afl 10.0 cm. No complicating process is seen by ultrasound at this time. No etiology for the patient's vaginal bleeding is seen. WBC 8.24 RBC 3.71 H & H 10.8/32.1 Na + 139 K + 3.4 chl 105 co2 21 BUN 6 creatine 0.9 ABO A+ HCG 33320. Urinalysis + 3 blood + H leukocytes. She asymptomatic I do not feel she needs antibiotic at this time for UTI. I will discharge home with instructions to have no sex, douche or tampons. To follow up with her OB Dr. Cannon next week. I instructed her to contact OB it she has sudden increased bleeding or to come to the ER. Instructed to return to the ER for any new or acute worsening symptoms. She verbalized understanding and is comfortable with plan for discharge. She is stable at time of discharge. 07/16/18 20:14 Departure - Departure Time of Disposition: 20:13 Disposition: Home, Self-Care 01 Condition: Good Clinical Impression: Vaginal bleeding before 22 weeks gestation Subchorionic bleed Qualifiers: Fetus number: single or unspecified fetus Trimester: second trimester Qualified Code(s): O41.8X20 - Other specified disorders of amniotic fluid and membranes, second trimester, not applicable or unspecified; O46.8X2 - Other antepartum hemorrhage, second trimester - Discharge Information Instructions: Threatened Miscarriage, [id number], Subchorionic Hematoma Referrals: Ford Cannon MD [Primary Care Provider] - Forms: ED Department Discharge Additional Instructions: You have been diagnosis with bleeding during . Your labs studies do indicate you are anemic and should continue to take your iron medication as prescribed. Your ultrasound revealed you are 18 weeks 2 days. You are to refrain from sex, douche or tampons until cleared by your OB . Follow up with Dr. Cannon next week or sooner if you start to have heavy bleeding. Return to the ER for any new or acute worsening symptoms. - My Orders Last 24 Hours: My Active Orders 07/16/18 17:39 Sodium Chloride 0.9% [Saline Flush] 10 ml FLUSH ASDIRECTED PRN Saline Lock Insert [OM.PC] Routine 07/16/18 18:30 Sodium Chloride 0.9% [Normal Saline] 1,000 ml IV ASDIRECTED - Assessment/Plan Last 24 Hours: My Active Orders 07/16/18 17:39 Sodium Chloride 0.9% [Saline Flush] 10 ml FLUSH ASDIRECTED PRN Saline Lock Insert [OM.PC] Routine 07/16/18 18:30 Sodium Chloride 0.9% [Normal Saline] 1,000 ml IV ASDIRECTED
[2018-07-16] MEDS ORDERED: Sodium Chloride 0.9% 1,000 ML IV SCH (18:30)
--- NOTE | 2018-07-16 19:20 | US ---
Limited obstetrical ultrasound: Multiple real-time images were obtained transabdominally. Comparison: Previous obstetrical ultrasound of 04/29/18. Dates: Current ultrasound: [facility] 12/15/18, gestational age 18 weeks 2 days Earliest ultrasound (04/29/18): [facility] 12/18/18, gestational age 17 weeks 6 days presentation: Mobile Placenta: Fundal with no findings of placenta previa or abruption Amniotic fluid: MARIANA 10.0 cm Measurements: BPD: 4.24 cm - 18 weeks 6 days Head circumference: 15.05 cm - 18 weeks 1 day Abdominal circumference: 12.95 cm - 18 weeks 3 days Femur length: 2.55 cm - 17 weeks 5 days Estimated weight: 226 g (0 lbs. 8 oz.), estimated weight at the 64th percentile Heart rate: 144 bpm Cervical length: 3.5 cm Impression: 1. Single intrauterine fetus mobile in presentation. Dates as noted above. 2. No complicating process is seen by ultrasound at this time. No etiology for the patient's vaginal bleeding is seen. Diagnostic code #1
== END 2018-07-16 20:31 | disposition home or self-care (01) ==
LOC: JD.ED 17:26
DX: O20.8 Other hemorrhage in early pregnancy (principal); Z3A.18 18 weeks gestation of pregnancy; Z79.899 Other long term (current) drug therapy
CPT/HCPCS: 36415; 76815; 80053; 81003; 84702; 85025; 86900; 86901; 96360; 99284; J7040

== ENCOUNTER 2018-12-14 07:12 | Inpatient (IN) | payer BC ==
[~2018-12-14 07:12] MED LIST: Bupivacaine 0.25% 10 ML SDV ONE
[2018-12-14] MEDS ORDERED: Nalbuphine 10 MG/1 ML Vial IVPUSH PRN (07:21)
[2018-12-14] MEDS ORDERED: Sodium Chloride 0.9% 10 ML Syringe FLUSH PRN (07:21)
[2018-12-14] MEDS ORDERED: Oxytocin/Lactated Ringers 10 UNIT/1,000 ML BAG IV SCH (07:30)
[2018-12-14] MEDS: Lactated Ringers 1,000 ML IV SCH ×4 (08:12→17:02)
--- NOTE | 2018-12-14 08:44 | PCM.LDHP ---
L&D History of Present Illness - General Date of Service: 12/14/18 Admit Problem/Dx: Patient Status Order with Admit Dx/Problem 12/14/18 07:21 Patient Status [ADT] Routine Admission Diagnosis/Problem Admission Diagnosis/Problem 12/14/18 08:36 Ester is a 28-year-old 2 now para 1001 white female who is admitted on the a.m. of 12/14/2018 for elective induction of labor at 39-3/7 weeks gestational age with an PHILIP of 12/18/2018. Source of Information: Patient History Limitations: Reports: No Limitations - History of Present Illness Introduction:: Ester is a 28-year-old 2 now para 1001 white female who is admitted on the a.m. of 12/14/2018 for elective induction of labor at 39-3/7 weeks gestational age with an PHILIP of 12/18/2018. Her cervix is 2 cm, 50% effaced, soft , -3, mid position with cephalic presentation. She was undergo Pitocin induction with artificial rupture membranes augmentation. The procedure, risks, benefits, alternatives of care including allowing natural onset of labor are all discussed with patient. She appears understand and wishes to proceed. 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 PHILIP is 12/18/2018 placing her at 39-3/7 weeks gestational age. Her PHILIP is set by an early ultrasound done on . Patient was initially seen on 06/30/2018. She was seen on a regular basis. Weight gain during the course and she was from 203-231 pounds for a 28 pound increase. Vital signs were stable throughout the course. Her fundal height growth was appropriate. She was a centering patient. Patient did have an abnormal 1 hour glucose tolerance test but her three-hour test was normal. Patient plans to breast-feed. She desires an epidural in labor and delivery. Her [place] depression screening score was 6 on a scale 31 done on 08/04/2018. She is group B strep negative. Her [place] noninvasive test done 07/07/2018 was normal. She did have some uterine bleeding early in which did result. First consisted of a normal simultaneous vaginal delivery on 03/07/2017 at 40 and 67 weeks gestational age after 33 hours of labor. 8 lbs. 15 oz. . She had an epidural with that delivery. labs: What is a positive with a negative MRI screening. First hemoglobin was 11.9 g/dL. Platelets are 234,000. Her chlamydia and gonorrhea were both negative. Hepatitis B surface antigen and HIV assays were both negative. Second trimester laboratory testing showed hemoglobin 10.5 g/dL which time she was started on iron sulfate. Platelet count was 220,000. Three-hour glucose tolerance test showed a fasting blood sugar of 89. One hour test was 136. 2 are tested 109 and three-hour test was 89. Group B strep screen was negative. Allergies: none Medications: 1. vitamins daily 2. Ferrous sulfate 325 mg by mouth daily recommended. Past medical history: Patient has had an abnormal Pap smear in 2011 with colposcopy being done 2. Patient's last delivery was on 03/07/2017. Normal spontaneous vaginal delivery8 lbs. 15 oz. Past surgical history: Unremarkable Family history: Mother is alive but with obesity. Father is alive, Parkinson's,' s cancer survivortype of cancer uncertain. Patient is 3 brothers are alive and well. Maternal grandmother is secondary to liver cancer. Maternal grandfather is secondary to stroke. Paternal grandmother is alive and well. Paternal grandfather secondary to stroke. There is no family history of cancer, bleeding, blood clotting, anesthesia-related problems. There is some family history of twins. Social history: Patient is . is Roel. She does not use any significant most alcohol, drugs or tobacco. She lives in [place], [place] Review of systems: In general patient has no complaints. Babies active. No contractions at this time. Skin: Negative Lungs: No infectious symptoms or shortness of breath Cardiovascular: No chest pain or exercise intolerance Breasts: Changes associated with . Patient plans to breast-feed GI: Negative : Changes associated with . Musculoskeletal: Negative Neurological: Negative In general the patient is well-developed, well-nourished, obese pleasant female of stated age in no acute distress. Skin is warm dry without lesions. HEENT, neck and back within normal limits. Lungs are clear with good breath sounds in all lung jim. Cardiovascular exam shows regular and rhythm without murmurs. Abdomen is gravid. Fundal height at last visit was 39 cm. Baby in vertex presentation. Genital exam shows cervix to be dilated as described above. Extremities and neurological exam are grossly within normal limits. 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: Reports: Social & Family History - Family History Family Medical History: Noncontributory - Caffeine Use Caffeine Use: Reports: Coffee H&P Review of Systems - Review of Systems: Review Of Systems: See Below L&D Exam - Exam Exam: See Below - Vital Signs Weight: 104.054 kg - Patient Data Lab Results Last 24 hrs: Laboratory Results - last 24 hr 12/14/18 Range/Units 07:38 WBC 8.18 (3.98-10.04) K/mm3 RBC 3.84 L (3.98-5.22) M/mm3 Hgb 10.8 L (11.2-15.7) gm/dl Hct 33.2 L (34.1-44.9) % MCV 86.5 (79.4-94.8) fl MCH 28.1 (25.6-32.2) pg MCHC 32.5 (32.2-35.5) g/dl RDW Std Deviation 46.3 (36.4-46.3) fL Plt Count 199 (182-369) K/mm3 MPV 11.4 (9.4-12.3) fl Neut % (Auto) 64.7 (34.0-71.1) % Lymph % (Auto) 28.2 (19.3-51.7) % [place] % (Auto) 5.3 (4.7-12.5) % Eos % (Auto) 1.2 (0.7-5.8) Baso % (Auto) 0.1 (0.1-1.2) % Neut # (Auto) 5.29 (1.56-6.13) K/mm3 Lymph # (Auto) 2.31 (1.18-3.74) K/mm3 [place] # (Auto) 0.43 H (0.24-0.36) K/mm3 Eos # (Auto) 0.10 (0.04-0.36) K/mm3 Baso # (Auto) 0.01 (0.01-0.08) K/mm3 Result Diagrams: 12/14/18 07:38 Problem List Initiated/Reviewed/Updated: Yes Orders Last 24hrs: Active Orders 24 hr Category Date Time Status Patient Status [ADT] Routine ADT 12/14/18 07:21 Active Activity as Tolerated [RC] PFP Care 12/14/18 07:21 Active Communication Order [RC] ASDIRECTED Care 12/14/18 07:21 Active Heart Tones [RC] ASDIRECTED Care 12/14/18 07:22 Active Non Stress Test [RC] PER UNIT ROUTINE Care 12/14/18 07:21 Active Notify Provider [RC] PFP Care 12/14/18 07:21 Active Notify Provider [RC] PRN Care 12/14/18 07:21 Active Peripheral IV Care [RC] . DIRECTED Care 12/14/18 07:22 Active Vital Signs [RC] PER UNIT ROUTINE Care 12/14/18 07:21 Active Regular Diet [DIET] Diet 12/14/18 Breakfast Active BLOOD BANK HOLD SPECIMEN [BBK] Stat Lab 12/14/18 07:38 Received RAPID PLASMA REAGIN,RPR [CHEM] Routine Lab 12/14/18 07:38 Received Lactated Ringers [Ringers, Lactated] 1,000 ml Med 12/14/18 07:30 Active IV ASDIRECTED Nalbuphine [Nubain] Med 12/14/18 07:21 Active 10 mg IVPUSH Q2H PRN Ondansetron [Zofran] Med 12/14/18 07:21 Active 4 mg IVPUSH Q4H PRN Oxytocin/Lactated Ringers [Pitocin in LR 10 Units/1,000 Med 12/14/18 07:30 Active ML] 10 unit in 1,000 ml IV TITRATE Sodium Chloride 0.9% [Saline Flush] Med 12/14/18 07:21 Active 10 ml FLUSH ASDIRECTED PRN Electronic Heart Tones Ext w TOCO [WOMSER] Oth 12/14/18 07:21 Ordered Routine Electronic Heart Tones Internal [WOMSER] Per Unit Oth 12/14/18 07:21 Ordered Routine Peripheral IV Insertion Adult [OM.PC] Routine Oth 12/14/18 07:21 Ordered Resuscitation Status Routine Resus Stat 12/14/18 07:21 Ordered Medication Orders Lactated Ringer's (Ringers, Lactated) 1,000 mls @ 100 mls/hr IV ASDIRECTED JAYDE Last Admin: 12/14/18 08:12 Dose: 100 mls/hr Oxytocin/Lactated Ringer's (Pitocin In Lr 10 Units/1,000 Ml) 10 unit in 1,000 mls @ 12 mls/hr IV TITRATE JAYDE; Protocol Last Admin: 12/14/18 08:12 Dose: 2 munits/min, 12 mls/hr Nalbuphine HCl (Nubain) 10 mg IVPUSH Q2H PRN PRN Reason: Pain Ondansetron HCl (Zofran) 4 mg IVPUSH Q4H PRN PRN Reason: Nausea/Vomiting Sodium Chloride (Saline Flush) 10 ml FLUSH ASDIRECTED PRN PRN Reason: Keep Vein Open Assessment/Plan Comment:: 1. 39-3/7 week intrauterine , elective induction of labor 2.Group B strep screen negative 3. Desires epidural in labor and delivery 4. Plans to breast-feed. 5. T dap given on 09/22/2018. 6. Patient is rubella immune 7. RPR is nonreactive. Plan: 1. Pitocin induction of labor with artificial rupture membranes augmentation when possible. 2. Epidural when necessary for labor analgesia 3. CBC and RPR per protocol upon admission 4. Support breast-feeding decision 5. Routine labor care.
--- NOTE | 2018-12-14 09:15 | PCM.PREANE ---
Preanesthetic Assessment - Procedure Proposed Procedure: shmuel - Anesthesia/Transfusion/Family Hx Anesthesia History: Prior Anesthesia Without Reaction Family History of Anesthesia Reaction: No Transfusion History: No Prior Transfusion(s) Intubation History: Unknown - Review of Systems General: No Symptoms Pulmonary: No Symptoms, Shortness of Breath () Cardiovascular: No Symptoms Gastrointestinal: No Symptoms Neurological: No Symptoms Other: Reports: Anxiety - Physical Assessment Vital Signs: Last Vital Signs Temp 97.8 F 12/14/18 07:21 Pulse Resp 14 12/14/18 07:21 BP 135/82 12/14/18 07:21 Pulse Ox 99 12/14/18 07:21 Height: 5 ft 2 in Weight: 104.054 kg ASA Class: 2 Mental Status: Alert & Oriented x3 Airway Class: Mallampati = 1 Dentition: Reports: Normal Dentition Thyro-Mental Finger Breadths: 3 Mouth Opening Finger Breadths: 3 ROM/Head Extension: Full Lungs: Clear to Auscultation, Normal Respiratory Effort Cardiovascular: Regular Rate, Regular Rhythm - Lab Values: Laboratory Last Values WBC 8.18 K/mm3 (3.98-10.04) 12/14/18 07:38 RBC 3.84 M/mm3 (3.98-5.22) L 12/14/18 07:38 Hgb 10.8 gm/dl (11.2-15.7) L 12/14/18 07:38 Hct 33.2 % (34.1-44.9) L 12/14/18 07:38 MCV 86.5 fl (79.4-94.8) 12/14/18 07:38 MCH 28.1 pg (25.6-32.2) 12/14/18 07:38 MCHC 32.5 g/dl (32.2-35.5) 12/14/18 07:38 RDW Std Deviation 46.3 fL (36.4-46.3) 12/14/18 07:38 Plt Count 199 K/mm3 (182-369) 12/14/18 07:38 MPV 11.4 fl (9.4-12.3) 12/14/18 07:38 Neut % (Auto) 64.7 % (34.0-71.1) 12/14/18 07:38 Lymph % (Auto) 28.2 % (19.3-51.7) 12/14/18 07:38 [place] % (Auto) 5.3 % (4.7-12.5) 12/14/18 07:38 Eos % (Auto) 1.2 (0.7-5.8) 12/14/18 07:38 Baso % (Auto) 0.1 % (0.1-1.2) 12/14/18 07:38 Neut # (Auto) 5.29 K/mm3 (1.56-6.13) 12/14/18 07:38 Lymph # (Auto) 2.31 K/mm3 (1.18-3.74) 12/14/18 07:38 [place] # (Auto) 0.43 K/mm3 (0.24-0.36) H 12/14/18 07:38 Eos # (Auto) 0.10 K/mm3 (0.04-0.36) 12/14/18 07:38 Baso # (Auto) 0.01 K/mm3 (0.01-0.08) 12/14/18 07:38 - Allergies Allergies/Adverse Reactions: Allergies Allergy/AdvReac Type Severity Reaction Status Date / Time No Known Allergies Allergy Verified 12/14/18 08:46 - Blood Blood Available: No - Acknowledgements Anesthesia Type Planned: Epidural Pt an Appropriate Candidate for the Planned Anesthesia: Yes Alternatives and Risks of Anesthesia Discussed w Pt/Guardian: Yes Pt/Guardian Understands and Agrees with Anesthesia Plan: Yes PreAnesthesia Questionnaire - Past Health History Medical/Surgical History: Denies Medical/Surgical History HEENT History: Reports: Sinusitis Cardiovascular History: Reports: None Respiratory History: Reports: None Gastrointestinal History: Reports: GERD (with preg) FINAL FINISHER History: Reports: : 2 (39 weeks) Para: 1 Psychiatric History: Reports: Anxiety Endocrine/Metabolic History: Reports: Obesity/BMI 30+ Oncologic (Cancer) History: Reports: None - SUBSTANCE USE Smoking Status *Q: Never Smoker Tobacco Use Within Last Twelve Months: No Second Hand Smoke Exposure: No Days Per Week of Alcohol Use: 0 Recreational Drug Use History: No - HOME MEDS Home Medications: Home Meds Vit with Ca/FA/Iron [ Plus Iron] 1 each PO DAILY tablet [Rx] - CURRENT (IN HOUSE) MEDS Current Meds: Current Medications Lactated Ringer's (Ringers, Lactated) 1,000 mls @ 100 mls/hr IV ASDIRECTED JAYDE Last Admin: 12/14/18 08:12 Dose: 100 mls/hr Oxytocin/Lactated Ringer's (Pitocin In Lr 10 Units/1,000 Ml) 10 unit in 1,000 mls @ 12 mls/hr IV TITRATE JAYDE; Protocol Last Titration: 12/14/18 09:00 Dose: 4 munits/min, 24 mls/hr Nalbuphine HCl (Nubain) 10 mg IVPUSH Q2H PRN PRN Reason: Pain Ondansetron HCl (Zofran) 4 mg IVPUSH Q4H PRN PRN Reason: Nausea/Vomiting Sodium Chloride (Saline Flush) 10 ml FLUSH ASDIRECTED PRN PRN Reason: Keep Vein Open
[2018-12-14] MEDS ORDERED: ePHEDrine 50 MG/ML SDV IVPUSH PRN (09:20)
[2018-12-14] MEDS ORDERED: fentaNYL/Bupivacaine in NS PF 2 MCG-0.125% 250 ML Premix EPIDUR PRN (09:20)
[2018-12-14] MEDS ORDERED: fentaNYL 100 MCG/2 ML SDV EPIDUR PRN (09:20)
[2018-12-14] MEDS ORDERED: diphenhydrAMINE 50 MG/ML SDV IVPUSH PRN (09:20)
[2018-12-14] MEDS: Ondansetron 4 MG/2 ML SDV IVPUSH PRN ×2 (13:13→17:46)
[2018-12-14] MEDS ORDERED: Oxytocin/Lactated Ringers 20 UNIT/1,000 ML BAG IV SCH (18:00)
[2018-12-14] MEDS ORDERED: Sodium Chloride 0.9% 1,000 ML IV PRN (20:50)
--- NOTE | 2018-12-14 23:56 | PCM.SN ---
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 She underwent Pitocin induction of labor followed by artificial rupture membranes augmentation of labor with resulting clear amniotic fluid. She progressed very slowly to approximately 4 cm and then more rapidly to complete. Patient had an epidural placed for labor analgesia. The patient became complete at approximately 2315 hrs. on 12/14/2018. Patient pushed for 2 contractions and delivered a viable, knowles, male infant with Apgars of 8 and 9, a length of 20.5 inches, weight of 3690 g (8 pounds 2.2 ounces) a right occiput anterior position. Shoulders delivered without incident. The baby was placed on mom's abdomen. Nose and mouth were bulb suctioned. Cord was clamped after approximately 2 minutes of pulsation. Cord was cut by the baby's father. The umbilical cord had 3 vessels. Upon delivery of the baby Pitocin was increased to 500 mL per hour to increase uterine tone and decrease likelihood of bleeding. The placenta delivered in a [place] presentation, appeared intact and complete and was discarded per patient desire. Estimated blood loss was 100 mL. Patient plans to breast-feed. Condition : Good
[2018-12-15] MEDS ORDERED: Acetaminophen 325 MG Tab PO PRN (00:15)
[2018-12-15] MEDS ORDERED: Witch Hazel Medicated Pads 40/Jar TOP PRN (00:15)
[2018-12-15] MEDS ORDERED: Lanolin 100% Cream 7 GM Tube TOP PRN (00:15)
[2018-12-15] MEDS ORDERED: Docusate Sodium 100 MG Cap PO PRN (00:15)
[2018-12-15] MEDS ORDERED: Benzocaine/Menthol 20%-0.5% Spray 56 GM Canister TOP PRN (00:15)
[2018-12-15] MEDS: Ibuprofen 600 MG Tab PO PRN ×2 (04:56→09:43)
--- NOTE | 2018-12-15 07:50 | PCM48HPAN ---
Post Anesthesia Note - EVALUATION WITHIN 48HRS OF ANESTHETIC Vital Signs in Normal Range: Yes Patient Participated in Evaluation: Yes Respiratory Function Stable: Yes Airway Patent: Yes Cardiovascular Function Stable: Yes Hydration Status Stable: Yes Pain Control Satisfactory: Yes Nausea and Vomiting Control Satisfactory: Yes Mental Status Recovered: Yes Vital Signs: Last Vital Signs Temp 36.9 C 12/15/18 04:25 Pulse 76 12/15/18 04:25 Resp 16 12/15/18 04:25 BP 110/47 L 12/15/18 04:25 Pulse Ox 96 12/15/18 04:25 - COMMENTS/OBSERVATIONS Free Text/Narrative:: no anesthesia complications noted
[2018-12-15] MEDS: Prenatal Multivitamin with Calcium/Folic Acid/Iron Tab PO SCH (08:26)
--- NOTE | 2018-12-15 10:51 | PCM.SN ---
- Free Text/Narrative Note: note: Postterm day #1 Patient is doing well in the period. Minimal lochia, voiding well, ambulated without problems. Nursing without concerns. Patient is afebrile, vital signs are stable Abdomen is flat, soft, uterus is below the umbilicus and is firm and nontender. Legs are nontender. Assessment: recovery going well. Plan: Routine care. Patient be discharged home within the next 24-48 hours.
[2018-12-16] MEDS: Ibuprofen 600 MG Tab PO PRN ×2 (02:37→08:45)
--- NOTE | 2018-12-16 06:15 | PCM.DCSUM1 ---
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 She underwent Pitocin induction of labor followed by artificial rupture membranes augmentation of labor with resulting clear amniotic fluid. She progressed very slowly to approximately 4 cm and then more rapidly to complete. Patient had an epidural placed for labor analgesia. The patient became complete at approximately 2315 hrs. on 12/14/2018. Patient pushed for 2 contractions and delivered a viable, knowles, male infant with Apgars of 8 and 9, a length of 20.5 inches, weight of 3690 g (8 pounds 2.2 ounces) a right occiput anterior position. Shoulders delivered without incident. The baby was placed on mom's abdomen. Nose and mouth were bulb suctioned. Cord was clamped after approximately 2 minutes of pulsation. Cord was cut by the baby's father. The umbilical cord had 3 vessels. Upon delivery of the baby Pitocin was increased to 500 mL per hour to increase uterine tone and decrease likelihood of bleeding. The placenta delivered in a [place] presentation, appeared intact and complete and was discarded per patient desire. Estimated blood loss was 100 mL. patient been breast-feeding without problems. She is ambulating well , has minimal lochia and is voiding without concerns. She is desiring discharge home today. In addition: Good Diagnosis: Stroke: No - Discharge Data Discharge Date: 12/16/18 Discharge Disposition: Home, Self-Care 01 Condition: Good - Referral to Home Health Primary Care Physician: PCP None - Patient Instructions Diet: Regular Diet as Tolerated (nursing diet with increased calories and sofia as recommende) Activity: As Tolerated (No intercourse or tampons until bleeding resolves) Driving: May Drive Today Showering/Bathing: May Shower (May take a bath) Notify Provider of: Fever, Increased Pain, Swelling and Redness, Nausea and/or Vomiting - Discharge Plan Home Medications: Home Meds Vit with Ca/FA/Iron [ Plus Iron] 1 each PO DAILY tablet [Rx] Acetaminophen [Tylenol] 650 mg PO Q4H PRN tablet 12/16/18 [Rx] Ibuprofen [Motrin] 600 mg PO Q4H PRN tablet 12/16/18 [Rx] Referrals: Ford Cannon MD [Physician] - (Return to clinicDr. Cannon2 weeks.) - Discharge Summary/Plan Comment DC Time >30 min.: No Discharge Summary/Plan Comment: Discharge instructions: 1. Discharge home 2. Diet, activity and follow-up discussed with patient. Recommend nursing diet with increased calories and calcium. 3. Precautions given concern increased pain, bleeding, temperature, signs/ symptoms of DVT/PE. 4. Medications per home medication was printed, discussed with and given to the patient. 5. Return to clinic-Dr. Cannon[facility] in 2 weeks. Diagnosis: Term -delivered Condition: Good - Patient Data Vitals - Most Recent: Last Vital Signs Temp 36.9 C 12/16/18 02:39 Pulse 64 12/16/18 02:39 Resp 17 12/16/18 02:39 BP 134/69 12/16/18 02:39 Pulse Ox 97 12/16/18 02:39 Weight - Most Recent: 104.054 kg I&O - Last 24 hours: Intake & Output 12/15/18 12/15/18 12/16/18 14:59 22:59 06:59 Intake Total 0 0 Balance 0 0 Med Orders - Current: Current Medications Acetaminophen (Tylenol) 650 mg PO Q4H PRN PRN Reason: mild pain or fever Benzocaine/Menthol (Dermoplast Pain Relief [place]) 0 gm TOP ASDIRECTED PRN PRN Reason: Perineal Comfort Measure Docusate Sodium (Colace) 100 mg PO BID PRN PRN Reason: Constipation Last Admin: 12/15/18 13:37 Dose: 100 mg Emollient Ointment (Lansinoh Hpa) 0 gm TOP ASDIRECTED PRN PRN Reason: Sore Nipples Ibuprofen (Motrin) 600 mg PO Q4H PRN PRN Reason: Mild pain or fever Last Admin: 12/16/18 02:37 Dose: 600 mg Prenat Multivit/Coater Operator Insulation Board/Iron/Folic Ac ( Plus Iron) 1 each PO DAILY JAYDE Last Admin: 12/15/18 08:26 Dose: 1 each Witch Shantal (Tucks) 1 pad TOP ASDIRECTED PRN PRN Reason: Pain Discontinued Medications Bupivacaine HCl (Sensorcaine-Mpf 0.25%) 10 ml .ROUTE .[facility] ONE Stop: 12/14/18 00:01 Diphenhydramine HCl (Benadryl) 25 mg IVPUSH Q6H PRN PRN Reason: pruritis Ephedrine Sulfate (Ephedrine Sulfate) 5 mg IVPUSH ASDIRECTED PRN PRN Reason: Hypotension Fentanyl (Sublimaze) 100 mcg EPIDUR Q3H PRN PRN Reason: Pain Last Admin: 12/14/18 11:33 Dose: 100 mcg Fentanyl/Bupivacaine HCl (Fentanyl/Bupivacaine/Ns 2 Mcg-0.125% 250 Ml) 2 mcg EPIDUR CONTINUOUS PRN PRN Reason: Pain Last Admin: 12/14/18 11:32 Dose: 2 mcg Lactated Ringer's (Ringers, Lactated) 1,000 mls @ 100 mls/hr IV ASDIRECTED JAYDE Last Admin: 12/14/18 17:02 Dose: 100 mls/hr Oxytocin/Lactated Ringer's (Pitocin In Lr 10 Units/1,000 Ml) 10 unit in 1,000 mls @ 12 mls/hr IV TITRATE JAYDE; Protocol Last Titration: 12/14/18 16:05 Dose: 20 munits/min, 120 mls/hr Oxytocin/Lactated Ringer's (Pitocin In Lr 20 Units/1,000 Ml) 20 unit in 1,000 mls @ 60 mls/hr IV TITRATE JAYDE; Protocol Last Admin: 12/14/18 18:02 Dose: 60 mls/hr Sodium Chloride (Normal Saline) 1,000 mls @ 100 mls/hr IV CONTINUOUS PRN PRN Reason: variables Last Admin: 12/14/18 21:10 Dose: 100 mls/hr Nalbuphine HCl (Nubain) 10 mg IVPUSH Q2H PRN PRN Reason: Pain Ondansetron HCl (Zofran) 4 mg IVPUSH Q4H PRN PRN Reason: Nausea/Vomiting Last Admin: 12/14/18 17:46 Dose: 4 mg Sodium Chloride (Saline Flush) 10 ml FLUSH ASDIRECTED PRN PRN Reason: Keep Vein Open
[2018-12-16] MEDS: Prenatal Multivitamin with Calcium/Folic Acid/Iron Tab PO SCH (08:44)
[2018-12-16 09:31] VITALS: BP 143/78; PULSE 73
== END 2018-12-16 11:30 | disposition home or self-care (01) | DRG 560 ==
LOC: JD.OB 07:12 → OBSVTOIN 23:28 → JD.OB 23:29
PROVIDERS: ADMIT Obstetrics & Gynecology; ATTEND Obstetrics & Gynecology
PROC: 10E0XZZ Delivery of Products of Conception, External Approach (ICD-10-PCS; principal; 2018-12-14)
PROC: 3E033VJ Introduction of Other Hormone into Peripheral Vein, Percutaneous Approach (ICD-10-PCS; 2018-12-14)
PROC: 10907ZC Drainage of Amniotic Fluid, Therapeutic from Products of Conception, Via Natural or Artificial Opening (ICD-10-PCS; 2018-12-14)
DX: O99.214 Obesity complicating childbirth (principal); E66.9 Obesity, unspecified; Z3A.39 39 weeks gestation of pregnancy; Z37.0 Single live birth
CPT/HCPCS: 01967; 36415; 51702; 59025; 59409; 85025; 86592; A9270-GY; J2405; J2590; J3010; J3490; J7040; J7120

== ENCOUNTER 2021-01-20 14:13 | Emergency (ER) | payer BC ==
[2021-01-20] MEDS ORDERED: Sodium Chloride 0.9% 10 ML Syringe FLUSH PRN (15:42)
[2021-01-20] MEDS ORDERED: Acetaminophen 325 MG Tab PO ONE (15:42)
[2021-01-20] MEDS ORDERED: Benzonatate 100 MG Cap PO ONE (15:42)
--- NOTE | 2021-01-20 16:06 | EDM.PDOC ---
ED HPI GENERAL MEDICAL PROBLEM - General Chief Complaint: Respiratory Problem Stated Complaint: COVID +/WORSE SYMPTOMS/39 WKS PG AND CHECKED IN OB Time Seen by Provider: 01/20/21 14:36 Source of Information: Reports: Patient History Limitations: Reports: No Limitations - History of Present Illness INITIAL COMMENTS - FREE TEXT/NARRATIVE: 30-year-old female presents the emergency department today with complaints of worsening Covid symptoms. Patient is 39 weeks . She states she developed Covid symptoms on January 11, 2021 and tested positive on January 14, 2021. States she has had increasing fatigue, fever, chills, nausea and diarrhea. She states she has had decreasing appetite as well. She states that the cough is paroxysmal and nonproductive. She states that she is having rib and abdominal pain due to coughing so hard. Of note, patient was evaluated on the OB floor prior to being seen in the emergency department. Patient denies having any contractions at this time. States she is otherwise healthy and has had an uneventful . Treatments EGG SORTER: Reports: Acetaminophen Other Treatments EGG SORTER: Robitussin at 1000 today Lower Back Pain Score (Numeric/FACES): 3 - Related Data Allergies Allergy/AdvReac Type Severity Reaction Status Date / Time No Known Allergies Allergy Verified 01/20/21 13:13 Home Meds: Home Meds Benzonatate [Tessalon Perle] 100 mg PO TID PRN #20 capsule 01/20/21 [Rx] Ferrous Sulfate [Iron] 325 mg PO DAILY 01/20/21 [History] No122/Iron/Folic Acid [ Multi Tablet] 1 each PO DAILY 01/20/21 [History] Past Medical History - Past Health History Medical/Surgical History: Denies Medical/Surgical History HEENT History: Reports: Sinusitis Cardiovascular History: Reports: None Respiratory History: Reports: Other (See Below) Other Respiratory History: +) COVID Gastrointestinal History: Reports: GERD Genitourinary History: Reports: UTI, Recurrent 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: Psychiatric History: Reports: Anxiety, Depression Endocrine/Metabolic History: Reports: Obesity/BMI 30+ Oncologic (Cancer) History: Reports: None - Infectious Disease History Infectious Disease History: Reports: Novel Coronavirus Social & Family History - Family History Family Medical History: No Pertinent Family History - Tobacco Use Tobacco Use Status *Q: Never Tobacco User Second Hand Smoke Exposure: No - Caffeine Use Caffeine Use: Reports: Coffee - Recreational Drug Use Recreational Drug Use: No ED ROS GENERAL - Review of Systems Review Of Systems: Comprehensive ROS is negative, except as noted in HPI. ED EXAM, GENERAL - Physical Exam Exam: See Below Exam Limited By: No Limitations General Appearance: Alert, WD/WN, Moderate Distress Ears: Normal External Exam, Hearing Grossly Normal Nose: Normal Inspection Throat/Mouth: Normal Inspection, Normal Lips, Normal Voice, No Airway Compromise Head: Atraumatic Neck: Normal Inspection, Supple Respiratory/Chest: No Respiratory Distress, Lungs Clear, Normal Breath Sounds, No Accessory Muscle Use, Chest Non-Tender Cardiovascular: Normal Peripheral Pulses, Regular Rate, Rhythm, No Edema, Syst olic Murmur Peripheral Pulses: 2+: Radial (L), Radial (R) GI/Abdominal: Normal Bowel Sounds (Female) Exam: Deferred Rectal (Female) Exam: Deferred Back Exam: Normal Inspection Extremities: Normal Inspection Neurological: Alert, Oriented, Normal Cognition Psychiatric: Normal Affect, Normal Mood Skin Exam: Warm, Intact, Normal Color, No Rash, Diaphoretic Lymphatic: No Adenopathy #1 Interpretation EKG Date: 01/20/21 Time: 16:51 Rhythm: NSR Rate (Beats/Min): 105 [place]: Normal P-Wave: Present QRS: Normal ST-T: Normal QT: Normal Comparison: NA - No Prior EKG EKG Interpretation Comments: Per Dr. Burrows interpretation: Sinus tachycardia at 105 bpm; normal EKG Course - Vital Signs Text/Narrative:: As stated above, patient presents with 9-day history of worsening Covid symptoms. Testing +6 days ago. Upon exam, the patient is very ill-appearing and has frequent paroxysmal cough noted. States she is nauseated. She does have a fever of 101.5. Lung sounds are clear to auscultation. O2 saturations 98 to 100% on room air. Will obtain lab studies to include a CBC, CMP, magnesium, C-reactive protein and a D-dimer. We will forego the chest x-ray at this time due to the patient being 39 weeks . Patient will be medicated with Tylenol 975 mg and Tessalon Perles. I attempted to contact infectious disease specialist at [facility] in [place] and they do not have anyone demolition specialist this weekend. Questioning whether or not it would be safe for the patient to receive monoclonal antibodies while in the emergency department. I then phoned [facility] in [place] and they will be calling me back once they get a hold of Dr. Carter, infectious disease specialist. Last Recorded V/S: Last Vital Signs Temp 97.7 F 01/20/21 18:47 Pulse 94 01/20/21 18:47 Resp 16 01/20/21 18:47 BP 138/73 01/20/21 18:47 Pulse Ox 99 01/20/21 18:47 - Orders/Labs/Meds Orders: Active Orders 24 hr Category Date Time Status Vital Signs [RC] Q15M Care 01/20/21 17:46 Active CULTURE URINE [MREF] Stat Lab 01/20/21 15:42 Received EPINEPHrine [Adrenalin] Med 01/20/21 17:46 Active 0.3 mg IM ASDIRECTED PRN Famotidine [Pepcid] Med 01/20/21 17:46 Active 20 mg IVPUSH ASDIRECTED PRN Sodium Chloride 0.9% [Saline Flush] Med 01/20/21 15:42 Active 10 ml FLUSH ASDIRECTED PRN Sodium Chloride 0.9% [Saline Flush] Med 01/20/21 18:00 Active 30 ml FLUSH ASDIRECTED diphenhydrAMINE [Benadryl] Med 01/20/21 17:46 Active 50 mg IVPUSH ASDIRECTED PRN methylPREDNISolone Sod Succ [Solu-MEDROL] Med 01/20/21 17:46 Active 125 mg IVPUSH ASDIRECTED PRN Saline Lock Insert [OM.PC] Stat Oth 01/20/21 15:42 Ordered Medication Orders Diphenhydramine HCl (Diphenhydramine 50 Mg/Ml Sdv) 50 mg IVPUSH ASDIRECTED PRN PRN Reason: hypersensitivity reaction Epinephrine HCl (Epinephrine 1 Mg/Ml Sdv) 0.3 mg IM ASDIRECTED PRN PRN Reason: hypersensitivity reaction Famotidine (Famotidine 20 Mg/2 Ml Sdv) 20 mg IVPUSH ASDIRECTED PRN PRN Reason: hypersensitivity reaction Methylprednisolone Sodium Succinate (Methylprednisolone Sodium Succinate 125 Mg/2 Ml Sdv) 125 mg IVPUSH ASDIRECTED PRN PRN Reason: hypersensitivity reaction Sodium Chloride (Sodium Chloride 0.9% 10 Ml Syringe) 10 ml FLUSH ASDIRECTED PRN PRN Reason: Keep Vein Open Last Admin: 01/20/21 16:05 Dose: 10 ml Documented by: LAQUITA Sodium Chloride (Sodium Chloride 0.9% 10 Ml Syringe) 30 ml FLUSH ASDIRECTED JAYDE Labs: Laboratory Tests 01/20/21 01/20/21 01/20/21 Range/Units 15:42 16:13 16:13 WBC 6.07 (3.98-10.04) K/mm3 RBC 3.85 L (3.98-5.22) M/mm3 Hgb 10.7 L (11.2-15.7) gm/dl Hct 33.3 L (34.1-44.9) % MCV 86.5 (79.4-94.8) fl MCH 27.8 (25.6-32.2) pg MCHC 32.1 L (32.2-35.5) g/dl RDW Std Deviation 50.1 H (36.4-46.3) fL Plt Count 174 L (182-369) K/mm3 MPV 11.3 (9.4-12.3) fl Neut % (Auto) 64.4 (34.0-71.1) % Lymph % (Auto) 23.4 (19.3-51.7) % [place] % (Auto) 8.4 (4.7-12.5) % Eos % (Auto) 0.2 L (0.7-5.8) Baso % (Auto) 0.5 (0.1-1.2) % Neut # (Auto) 3.91 (1.56-6.13) K/mm3 Lymph # (Auto) 1.42 (1.18-3.74) K/mm3 [place] # (Auto) 0.51 H (0.24-0.36) K/mm3 Eos # (Auto) 0.01 L (0.04-0.36) K/mm3 Baso # (Auto) 0.03 (0.01-0.08) K/mm3 D-Dimer, Quantitative 2.95 H (0.19-0.50) mg/L Sodium (136-145) mEq/L Potassium (3.5-5.1) mEq/L Chloride (98-107) mEq/L Carbon Dioxide (21-32) mEq/L Anion Gap (5-15) BUN (7-18) mg/dL Creatinine (0.55-1.02) mg/dL Est Cr Clr Drug Dosing mL/min Estimated GFR (MDRD) (>60) mL/min BUN/Creatinine Ratio (14-18) Glucose (70-99) mg/dL Lactic Acid (0.4-2.0) mmol/L Calcium (8.5-10.1) mg/dL Magnesium (1.8-2.4) mg/dL Total Bilirubin (0.2-1.0) mg/dL AST (15-37) U/L ALT (14-59) U/L Alkaline Phosphatase (46-116) U/L C-Reactive Protein (<1.0) mg/dL Total Protein (6.4-8.2) g/dl Albumin (3.4-5.0) g/dl Globulin gm/dL Albumin/Globulin Ratio (1-2) Urine Color Yellow (Yellow) Urine Appearance Clear (Clear) Urine pH 6.5 (5.0-8.0) Ur Specific [place] 1.020 (1.005-1.030) Urine Protein 1+ H (Negative) Urine Glucose (UA) Negative (Negative) Urine Ketones 4+ H (Negative) Urine Occult Blood Negative (Negative) Urine Nitrite Negative (Negative) Urine Bilirubin 1+ H (Negative) Urine Urobilinogen 4.0 H (0.2-1.0) Ur Leukocyte Esterase 1+ H (Negative) Urine RBC 0-5 (0-5) /hpf Urine WBC 10-20 H (0-5) /hpf Ur Epithelial Cells 50-75 H (0-5) /hpf Urine Bacteria Moderate H (FEW) /hpf Urine Mucus Not seen (FEW) /hpf 01/20/21 01/20/21 Range/Units 16:13 16:13 WBC (3.98-10.04) K/mm3 RBC (3.98-5.22) M/mm3 Hgb (11.2-15.7) gm/dl Hct (34.1-44.9) % MCV (79.4-94.8) fl MCH (25.6-32.2) pg MCHC (32.2-35.5) g/dl RDW Std Deviation (36.4-46.3) fL Plt Count (182-369) K/mm3 MPV (9.4-12.3) fl Neut % (Auto) (34.0-71.1) % Lymph % (Auto) (19.3-51.7) % [place] % (Auto) (4.7-12.5) % Eos % (Auto) (0.7-5.8) Baso % (Auto) (0.1-1.2) % Neut # (Auto) (1.56-6.13) K/mm3 Lymph # (Auto) (1.18-3.74) K/mm3 [place] # (Auto) (0.24-0.36) K/mm3 Eos # (Auto) (0.04-0.36) K/mm3 Baso # (Auto) (0.01-0.08) K/mm3 D-Dimer, Quantitative (0.19-0.50) mg/L Sodium 135 L (136-145) mEq/L Potassium 3.8 (3.5-5.1) mEq/L Chloride 102 (98-107) mEq/L Carbon Dioxide 21 (21-32) mEq/L Anion Gap 15.8 H (5-15) BUN 3 L (7-18) mg/dL Creatinine 0.6 (0.55-1.02) mg/dL Est Cr Clr Drug Dosing 108.43 mL/min Estimated GFR (MDRD) > 60 (>60) mL/min BUN/Creatinine Ratio 5.0 L (14-18) Glucose 85 (70-99) mg/dL Lactic Acid 0.6 (0.4-2.0) mmol/L Calcium 8.0 L (8.5-10.1) mg/dL Magnesium 2.0 (1.8-2.4) mg/dL Total Bilirubin 0.5 (0.2-1.0) mg/dL AST 24 (15-37) U/L ALT 16 (14-59) U/L Alkaline Phosphatase 96 (46-116) U/L C-Reactive Protein 8.8 H* (<1.0) mg/dL Total Protein 6.6 (6.4-8.2) g/dl Albumin 2.7 L (3.4-5.0) g/dl Globulin 3.9 gm/dL Albumin/Globulin Ratio 0.7 L (1-2) Urine Color (Yellow) Urine Appearance (Clear) Urine pH (5.0-8.0) Ur Specific [place] (1.005-1.030) Urine Protein (Negative) Urine Glucose (UA) (Negative) Urine Ketones (Negative) Urine Occult Blood (Negative) Urine Nitrite (Negative) Urine Bilirubin (Negative) Urine Urobilinogen (0.2-1.0) Ur Leukocyte Esterase (Negative) Urine RBC (0-5) /hpf Urine WBC (0-5) /hpf Ur Epithelial Cells (0-5) /hpf Urine Bacteria (FEW) /hpf Urine Mucus (FEW) /hpf Meds: Medications Generic Name Dose Route Start Last Admin Trade Name Freq PRN Reason Stop Dose Admin Diphenhydramine HCl 50 mg 01/20/21 17:46 Diphenhydramine 50 Mg/Ml Sdv IVPUSH ASDIRECTED PRN hypersensitivity reaction Epinephrine HCl 0.3 mg 01/20/21 17:46 Epinephrine 1 Mg/Ml Sdv IM ASDIRECTED PRN hypersensitivity reaction Famotidine 20 mg 01/20/21 17:46 Famotidine 20 Mg/2 Ml Sdv IVPUSH ASDIRECTED PRN hypersensitivity reaction Methylprednisolone Sodium Succinate 125 mg 01/20/21 17:46 Methylprednisolone Sodium Succinate 125 Mg/2 Ml Sdv IVPUSH ASDIRECTED PRN hypersensitivity reaction Sodium Chloride 10 ml 01/20/21 15:42 01/20/21 16:05 Sodium Chloride 0.9% 10 Ml Syringe FLUSH 10 ml ASDIRECTED PRN Administration Keep Vein Open Sodium Chloride 30 ml 01/20/21 18:00 Sodium Chloride 0.9% 10 Ml Syringe FLUSH ASDIRECTED JAYDE Discontinued Medications Generic Name Dose Route Start Last Admin Trade Name Freq PRN Reason Stop Dose Admin Acetaminophen 975 mg 01/20/21 15:42 01/20/21 15:59 Acetaminophen 325 Mg Tab PO 01/20/21 15:43 975 mg NOW ONE Administration Benzonatate 100 mg 01/20/21 15:42 01/20/21 16:00 Benzonatate 100 Mg Cap PO 01/20/21 15:43 100 mg ONETIME ONE Administration CASIRIVIMAB/IMDEVIMAB 10 ml/ 110 mls @ 220 mls/hr 01/20/21 17:46 01/20/21 18:23 Sodium Chloride IV 01/20/21 18:15 220 mls/hr ONETIME ONE Administration - Re-Assessments/Exams Free Text/Narrative Re-Assessment/Exam: 01/20/21 16:30 Hematology reveals a WBC of 6.07, hemoglobin 10.7, hematocrit 33.3, platelet count 174 Coagulation reveals a D-dimer of 2.95 Chemistry reveals a sodium of 135, potassium 3.8, anion gap 15.8, BUN 3, creatinine 0.6, GFR greater than 60, lactic acid 0.6, magnesium 2.0, C-reactive protein 8.8 Patient does have noted elevation in her D-dimer. Discussed the case with Dr. Burrows and he states that due to the patient having O2 saturations 98 to 100% to forego CTA to not subject to the patient and her baby due to extensive radiation. I attempted to call [facility] [place] and [facility] [place] to speak to the infectious disease specialist regarding recommendations for the patient to receive monoclonal antibodies however they do not have an infectious disease specialist demolition specialist. I then did phone [facility] in [place] and they stated that they will page , infectious disease specialist. 01/20/21 16:55 Dr. Carter, infectious disease specialist at [facility] in [place] returned my call. Discussed patient's case with him. He states that although there have not been any studies completed on monoclonal antibodies during , it is under emergency use authorization and he states that it has been used during . He states that the risk of symptoms and lasting effects of Covid has to be taken into effect. He states that normally it is given within the first 10 days of Covid symptoms and today would be day 10 of patient's Covid symptoms so he does not know that it would have full benefit for this patient. I discussed all this information with the patient and she states that she is going to phone her and discuss it with him and then she will notify nursing staff what she decides. 01/20/21 17:45 I spoke with the patient to provide information about Regeneron for herself. I offered her the fact sheet for patients and caregivers for Regeneron to read and review. I stated the therapy has been approved by an emergency use authorization process and has not fully been FDA reviewed or approved. I shared the potential risks from the therapy including allergic reaction. I discussed there are other potential treatment options that are currently not FDA approved to treat COVID-19. Discussed with the patient that is not an exclusion for Regeneron treatment, but the therapy has not been fully evaluated in patients. Offered opportunity ask questions and all questions were answered. Patient voiced understanding and agreed to proceed with treatment for herself. 01/20/21 18:09 Patient does state that the Tessalon Perles have helped decrease the severity and frequency of her cough. 01/20/21 19:45 Patient has received the monoclonal antibody treatment and has been monitored for 1 hour after. She will be discharged home. Departure - Departure Time of Disposition: 19:45 Disposition: Home, Self-Care 01 Condition: Good Clinical Impression: COVID-19 - Discharge Information Prescriptions: Benzonatate [Tessalon Perle] 100 mg PO TID PRN #20 capsule PRN Reason: Cough Referrals: Ford Cannon MD [Primary Care Provider] - Forms: ED Department Discharge Additional Instructions: You were seen in the emergency department this evening due to worsening Covid symptoms. Lab studies were completed and they were essentially unremarkable. You did qualify for monoclonal antibody treatment and as discussed it is under emergency use authorization however you elected to receive this treatment. You were monitored for 1 hour after receiving the treatment and tolerated it well. You are also given a medication for your cough called Sully Luis while in the emergency department and this seemed to help fairly well. I have sent prescription for this medication to [facility]. You may take 1 tab up to 3 times daily as needed for cough. You will need to remain on 10 days of isolation from the initial onset of the symptoms. Follow-up with your OB provider as scheduled. Sepsis Event Note (ED) - Evaluation Sepsis Screening Result: No Definite Risk - Focused Exam Vital Signs: Vital Signs Temp Temp Pulse Resp BP Pulse Ox 01/20/21 18:47 97.7 F 94 16 138/73 99 01/20/21 18:24 97.4 F 95 18 133/75 97 01/20/21 15:59 101.5 F H 01/20/21 15:34 101.5 F H 100 20 127/78 98 01/20/21 14:28 98.3 F 101 H 18 101/79 100 - My Orders Last 24 Hours: My Active Orders 01/20/21 15:42 CULTURE URINE [MREF] Stat Sodium Chloride 0.9% [Saline Flush] 10 ml FLUSH ASDIRECTED PRN Saline Lock Insert [OM.PC] Stat 01/20/21 17:46 Vital Signs [RC] Q15M EPINEPHrine [Adrenalin] 0.3 mg IM ASDIRECTED PRN Famotidine [Pepcid] 20 mg IVPUSH ASDIRECTED PRN diphenhydrAMINE [Benadryl] 50 mg IVPUSH ASDIRECTED PRN methylPREDNISolone Sod Succ [Solu-MEDROL] 125 mg IVPUSH ASDIRECTED PRN 01/20/21 18:00 Sodium Chloride 0.9% [Saline Flush] 30 ml FLUSH ASDIRECTED - Assessment/Plan Last 24 Hours: My Active Orders 01/20/21 15:42 CULTURE URINE [MREF] Stat Sodium Chloride 0.9% [Saline Flush] 10 ml FLUSH ASDIRECTED PRN Saline Lock Insert [OM.PC] Stat 01/20/21 17:46 Vital Signs [RC] Q15M EPINEPHrine [Adrenalin] 0.3 mg IM ASDIRECTED PRN Famotidine [Pepcid] 20 mg IVPUSH ASDIRECTED PRN diphenhydrAMINE [Benadryl] 50 mg IVPUSH ASDIRECTED PRN methylPREDNISolone Sod Succ [Solu-MEDROL] 125 mg IVPUSH ASDIRECTED PRN 01/20/21 18:00 Sodium Chloride 0.9% [Saline Flush] 30 ml FLUSH ASDIRECTED
[2021-01-20] MEDS ORDERED: diphenhydrAMINE 50 MG/ML SDV IVPUSH PRN (17:46)
[2021-01-20] MEDS ORDERED: Famotidine 20 MG/2 ML SDV IVPUSH PRN (17:46)
[2021-01-20] MEDS ORDERED: EPINEPHrine 1 MG/ML SDV IM PRN (17:46)
[2021-01-20] MEDS ORDERED: methylPREDNISolone Sodium Succinate 125 MG/2 ML SDV IVPUSH PRN (17:46)
[2021-01-20] MEDS ORDERED: Sodium Chloride 0.9% 10 ML Syringe FLUSH SCH (18:00)
[2021-01-20 18:48] VITALS: PULSE 94
[2021-01-20 23:38] VITALS: BP 137/72
== END 2021-01-20 20:00 | disposition home or self-care (01) ==
LOC: JD.ED 14:13
DX: U07.1 COVID-19 (principal); E66.9 Obesity, unspecified; Z68.41 Body mass index [BMI] 40.0-44.9, adult
CPT/HCPCS: 36415; 80053; 81001; 83605; 83735; 85025; 85379; 86140; 87086; 93005; 99283; A9270; M0243; Q0243

== ENCOUNTER 2021-01-23 02:52 | Inpatient (IN) | payer BC ==
[2021-01-23] MEDS ORDERED: Nalbuphine 10 MG/1 ML Vial IVPUSH PRN (03:05)
[2021-01-23] MEDS ORDERED: Sodium Chloride 0.9% 10 ML Syringe FLUSH PRN (03:05)
[2021-01-23] MEDS ORDERED: Ondansetron 4 MG/2 ML SDV IVPUSH PRN (03:05)
[2021-01-23] MEDS ORDERED: Lidocaine 1% 50 ML MDV INJECT ONE (03:05)
[2021-01-23] MEDS ORDERED: Calcium Carbonate 500 MG Tab.Chew PO PRN (03:05)
[2021-01-23] MEDS ORDERED: Acetaminophen 325 MG Tab PO PRN ×2 (03:05→17:46)
[2021-01-23] MEDS ORDERED: Oxytocin/Lactated Ringers 10 UNIT/1,000 ML BAG IV SCH ×2 (03:15→04:45)
[2021-01-23] MEDS: Lactated Ringers 1,000 ML IV SCH ×3 (04:40→10:23)
--- NOTE | 2021-01-23 06:35 | PCM.LDHP ---
L&D History of Present Illness - General Date of Service: 01/23/21 Admit Problem/Dx: Patient Status Order with Admit Dx/Problem 01/23/21 03:05 Patient Status [ADT] Routine Admission Diagnosis/Problem Admission Diagnosis/Problem 01/23/21 06:23 Ester is a 30-year-old 3 para 2-0-0-2 female who is admitted on the a.m. of 01/23/2021 39-4/7 weeks gestational age with an PHILIP of 01/26/2021 for induction of labor. Source of Information: Patient History Limitations: Reports: No Limitations - History of Present Illness Introduction:: Ester is a 30-year-old 3 para 2-0-0-2 female who is admitted on the a.m. of 01/23/2021 39-4/7 weeks gestational age with an PHILIP of 01/26/2021 for induction of labor. The procedure and process of induction of labor, its limitations, risk and benefits and alternatives including allowing for natural onset of labor all discussed in detail with patient. She appears understand and wishes to proceed. The induction is started with Pitocin and will be followed by AROM when possible. Cervix upon admission is 2 cm dilated, 70% effaced, soft, -3, mid position, cephalic presentation. 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 Patient had menarche at approximately age 13. Cycles regular every 30 days. Her PHILIP of 01/27/2020 was based upon a certain LMP 04/21/2020 is supported by at least 3 ultrasounds during the course of the . Patient has had regular menstrual cycles, was not on any control at the time of conception. She denies any STIs. Previous obstetric history includes abnormal Pap smear with colposcopy done in 2011. History of somewhat irregular menstrual bleeding at times and the following deliveries: 1. Male infant born 03/07/2017 at 40-6/7 weeks gestational age after 33 hours of labor8 pounds 15 [facility] analgesia. 2. Male infant born born 12/14/2018 at 39-3/7 weeks gestational age8 pounds 2 [facility] in [facility] used for analgesia. course: Patient is first visit was on 07/12/2020 at 11-5/7 weeks gestational age. Ultrasound at that time confirmed dates. She was seen on a very regular basis throughout the . Throughout the course of the patient has had normal fundal height growth. Weight gain has been from 216 pounds to 249 pounds for a 33 pound increase. Vital signs been stable throughout the course. Patient had Covid with onset of symptoms approximately 12 days prior to this admission. She received Regeneron approximately 3 days ago and symptoms are relatively resolved. Patient desires epidural in labor. Group B strep is negative. Prequel noninvasive screen done in June 2020 was low risk for trisomy 21, 18 and 13. Female identified. Patient plans to breast-feed. Tdap was given on 11/02/2020. Patient is rubella immune Laboratory testing: Unfortunate visit blood is noted to be a positive. Hemoglobin is 11.6 g/dL and platelets are 233,000. She is rubella immune. RPR is nonreactive. Hepatitis B surface antigen and HIV assays were both negative. Chlamydia, gonorrhea and hepatitis C virus antibody were negative. TSH obtained on 07/12/2020 was normal at 2.310. Second trimester labs showed a hemoglobin 11.0 g/dL and platelets of 205,000. 1 hour GTT was normal at 126. Her group B strep screen was negative. Allergies: Seasonal only Medications: 1. vitamins one daily 2. Ferrous sulfate 3 and 25 mg daily Past medical history: 1. Abnormal Pap smear evaluated colposcopy 2012 2. Irregular menstrual bleeding on occasion. At the time of conception cycles were regular. 3. Seasonal allergies related to pollen. Past surgical history: Unremarkable Family history: Mother is alive but has obesity. Father is alive has Parkinson's. He is a cancer survivor but location of cancer uncertain. She has 3 brothers all alive and well. Paternal grandmother is secondary to liver cancer. Maternal grandfather is secondary to stroke. Paternal grandmother is alive and well. Paternal grandfather is secondary to stroke. There is no family history of cancer, bleeding, clotting disorders, a nesthesia related issues or related problems. There is a history of multiples in the family. Social history: Patient is . is Hector. She lives in [place]. She is a [id number] mom. She denies any significance alcohol, drugs or tobacco. Review of systems: Review of systems: In general patient has no complaints. Patient did have significant respiratory symptoms from Covid but these have resolved with the assistance of a Regeneron infusion. Skin: Negative Lungs: No infectious symptoms or shortness of breath Cardiovascular: No chest pain or exercise intolerance Breasts: No lumps, changes in size, pain, dimpling, discharge or axillary or supraclavicular concerns. GI: Negative : changes noted. Baby's been active. Musculoskeletal: Negative Neurological: Negative Physical exam: In general the patient is well-developed, well-nourished, pleasant female of stated age in no acute distress. On last evaluation in clinic on 02/11/2021 her weight was 200 with a pregravid weight of 216. Height is 5 feet 2 inches. Blood pressure is 118/60. heart rate is 147. Fundal height was 40. Skin is warm dry without lesions. HEENT, neck and back within normal limits. Lungs are clear with good breath sounds in all lung jim. Cardiovascular exam shows regular and rhythm without murmurs. Breast exam deferred have been done at first visit and found to be normal. Patient does plan to breast-feed. Abdomen is gravid with last fundal height in clinic at 40 cm. Baby in vertex presentation Genital exam per digital evaluation shows cervix to be 2 cm dilated, 70% effaced, soft, -3 station, mid position, cephalic presentation. Extremities and neurological exam are grossly within normal limits. - Related Data Allergies/Adverse Reactions: Allergies Allergy/AdvReac Type Severity Reaction Status Date / Time No Known Allergies Allergy Verified 01/23/21 03:04 Home Medications: Home Meds No122/Iron/Folic Acid [ Multi Tablet] 1 each PO DAILY 01/20/21 [History] Past Medical History - Past Health History Medical/Surgical History: Denies Medical/Surgical History HEENT History: Reports: Sinusitis Cardiovascular History: Reports: None Respiratory History: Reports: Other (See Below) Other Respiratory History: +) COVID Gastrointestinal History: Reports: GERD Genitourinary History: Reports: UTI, Recurrent 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: Psychiatric History: Reports: Anxiety, Depression Endocrine/Metabolic History: Reports: Obesity/BMI 30+ Oncologic (Cancer) History: Reports: None - Infectious Disease History Infectious Disease History: Reports: Novel Coronavirus Social & Family History - Family History Family Medical History: No Pertinent Family History - Tobacco Use Tobacco Use Status *Q: Never Tobacco User Second Hand Smoke Exposure: No - Caffeine Use Caffeine Use: Reports: Coffee - Recreational Drug Use Recreational Drug Use: No H&P Review of Systems - Review of Systems: Review Of Systems: See Below L&D Exam - Exam Exam: See Below - Vital Signs Weight: 109.724 kg - Patient Data Lab Results Last 24 hrs: Laboratory Results - last 24 hr 01/23/21 01/23/21 Range/Units 03:20 03:20 WBC 6.76 (3.98-10.04) K/mm3 RBC 4.00 (3.98-5.22) M/mm3 Hgb 11.1 L (11.2-15.7) gm/dl Hct 34.2 (34.1-44.9) % MCV 85.5 (79.4-94.8) fl MCH 27.8 (25.6-32.2) pg MCHC 32.5 (32.2-35.5) g/dl RDW Std Deviation 46.8 H (36.4-46.3) fL Plt Count 220 (182-369) K/mm3 MPV 10.9 (9.4-12.3) fl Neut % (Auto) 51.6 (34.0-71.1) % Lymph % (Auto) 35.9 (19.3-51.7) % [place] % (Auto) 8.7 (4.7-12.5) % Eos % (Auto) 1.3 (0.7-5.8) Baso % (Auto) 0.4 (0.1-1.2) % Neut # (Auto) 3.48 (1.56-6.13) K/mm3 Lymph # (Auto) 2.43 (1.18-3.74) K/mm3 [place] # (Auto) 0.59 H (0.24-0.36) K/mm3 Eos # (Auto) 0.09 (0.04-0.36) K/mm3 Baso # (Auto) 0.03 (0.01-0.08) K/mm3 Blood Type A POSITIVE Gel Antibody Screen Negative Result Diagrams: 01/23/21 03:20 - Problem List (1) 39 weeks gestation of SNOMED Code(s): 68834734 ICD Code: Z3A.39 - 39 WEEKS GESTATION OF Status: Acute Current Visit: Yes (2) COVID-19 SNOMED Code(s): 181929670 ICD Code: U07.1 - COVID-19 Status: Acute Current Visit: No (3) History of macrosomia in infant in prior , currently SNOMED Code(s): 40528485833975, 48932877182442 ICD Code: O09.299 - SUPRVSN OF PREG W POOR REPRODCTV OR OBSTET HISTORY, UNSP TRI Status: Acute Current Visit: Yes Problem List Initiated/Reviewed/Updated: Yes Orders Last 24hrs: Active Orders 24 hr Category Date Time Status Patient Status [ADT] Routine ADT 01/23/21 03:05 Active Activity as Tolerated [RC] PFP Care 01/23/21 03:05 Active Communication Order [RC] ASDIRECTED Care 01/23/21 03:05 Active Heart Tones [RC] ASDIRECTED Care 01/23/21 03:05 Active Non Stress Test [RC] PER UNIT ROUTINE Care 01/23/21 03:05 Active Notify Provider [RC] PFP Care 01/23/21 03:05 Active Notify Provider [RC] PRN Care 01/23/21 03:05 Active Peripheral IV Care [RC] . DIRECTED Care 01/23/21 03:05 Active Vital Signs [RC] PER UNIT ROUTINE Care 01/23/21 03:05 Active Regular Diet [DIET] Diet 01/23/21 Breakfast Active RAPID PLASMA REAGIN,RPR [CHEM] Routine Lab 01/23/21 03:20 Received Acetaminophen [TylenoL] Med 01/23/21 03:05 Active 650 mg PO Q4H PRN Calcium Carbonate [Tums] Med 01/23/21 03:05 Active 1,000 mg PO Q2H PRN Lactated Ringers [Ringers, Lactated] 1,000 ml Med 01/23/21 03:15 Active IV ASDIRECTED Nalbuphine [Nubain] Med 01/23/21 03:05 Active 10 mg IVPUSH Q2H PRN Ondansetron [Zofran] Med 01/23/21 03:05 Active 4 mg IVPUSH Q4H PRN Oxytocin/Lactated Ringers [Pitocin in LR 10 Units/1,000 Med 01/23/21 03:15 Active ML] 10 unit in 1,000 ml IV .CONTINUOUS Oxytocin/Lactated Ringers [Pitocin in LR 10 Units/1,000 Med 01/23/21 04:45 Active ML] 10 unit in 1,000 ml IV TITRATE Sodium Chloride 0.9% [Saline Flush] Med 01/23/21 03:05 Active 10 ml FLUSH ASDIRECTED PRN Electronic Heart Tones Ext w TOCO [WOMSER] Oth 01/23/21 03:05 Ordered Routine Electronic Heart Tones Internal [WOMSER] Per Unit Oth 01/23/21 03:05 Ordered Routine Peripheral IV Insertion Adult [OM.PC] Routine Oth 01/23/21 03:05 Ordered Resuscitation Status Routine Resus Stat 01/23/21 03:05 Ordered Medication Orders Acetaminophen (Acetaminophen 325 Mg Tab) 650 mg PO Q4H PRN PRN Reason: Pain (Mild 1-3) and fever Calcium Carbonate/Glycine (Calcium Carbonate 500 Mg Tab.Chew) 1,000 mg PO Q2H PRN PRN Reason: Indigestion Oxytocin/Lactated Ringer's (Pitocin In Lr 10 Units/1,000 Ml) 10 unit in 1,000 mls @ 500 mls/hr IV .CONTINUOUS JAYDE Lactated Ringer's (Ringers, Lactated) 1,000 mls @ 100 mls/hr IV ASDIRECTED JAYDE Last Admin: 01/23/21 04:40 Dose: 100 mls/hr Documented by: NINA Oxytocin/Lactated Ringer's (Pitocin In Lr 10 Units/1,000 Ml) 10 unit in 1,000 mls @ 12 mls/hr IV TITRATE JAYDE; Protocol Last Admin: 01/23/21 04:40 Dose: 2 munits/min, 12 mls/hr Documented by: NINA Nalbuphine HCl (Nalbuphine 10 Mg/1 Ml Vial) 10 mg IVPUSH Q2H PRN PRN Reason: Pain Ondansetron HCl (Ondansetron 4 Mg/2 Ml Sdv) 4 mg IVPUSH Q4H PRN PRN Reason: Nausea/Vomiting Sodium Chloride (Sodium Chloride 0.9% 10 Ml Syringe) 10 ml FLUSH ASDIRECTED PRN PRN Reason: Keep Vein Open Assessment/Plan Comment:: 1. Ester is a 30-year-old 3 para 2-0-0-2 female who is admitted on the a.m. of 01/23/2021 39-4/7 weeks gestational age with an PHILIP of 01/26/2021 for induction of labor. 2. Group B strep negative. 3. Patient desires epidural 4. Risk factors of include obesity, history of Covid now resolved, history of 8 pound 15 ounce baby. 5. Patient received Tdap 11/02/2020. She is rubella immune. 6. Patient plans to breast-feed. Plan: 1. Pitocin induction of labor with AROM augmentation when possible. Procedure, risk, benefits, limitations, alternatives of care and follow-up were all discussed with patient. She appears understand and wishes to proceed 2. Epidural when patient desires and is making progress 3. Admission labs include CBC, RPR. 4. Support breast-feeding decision 5. Anticipate .
[2021-01-23] MEDS ORDERED: Bupivacaine/fentaNYL/NS 100 ML Bag EPIDUR PRN (07:34)
[2021-01-23] MEDS ORDERED: diphenhydrAMINE 50 MG/ML SDV IVPUSH PRN (07:34)
[2021-01-23] MEDS ORDERED: fentaNYL 100 MCG/2 ML SDV EPIDUR PRN (07:34)
[2021-01-23] MEDS ORDERED: ePHEDrine 50 MG/ML SDV IVPUSH PRN (07:34)
--- NOTE | 2021-01-23 08:04 | PCM.PREANE ---
Preanesthetic Assessment - Procedure Proposed Procedure: shmuel - Anesthesia/Transfusion/Family Hx Anesthesia History: Prior Anesthesia Without Reaction Family History of Anesthesia Reaction: No Transfusion History: No Prior Transfusion(s) Intubation History: Unknown - Review of Systems General: Fever (covid 01/11/21) Pulmonary: Cough (covid) Cardiovascular: No Symptoms Gastrointestinal: No Symptoms Neurological: No Symptoms Other: Reports: Anxiety - Physical Assessment Vital Signs: Last Vital Signs Temp 98.1 F 01/23/21 04:35 Pulse 80 01/23/21 04:35 Resp 16 01/23/21 04:35 BP 121/74 01/23/21 04:35 Pulse Ox 100 01/23/21 04:35 Height: 5 ft 2 in Weight: 109.724 kg ASA Class: 2 Mental Status: Alert & Oriented x3 Airway Class: Mallampati = 1 Dentition: Reports: Normal Dentition Thyro-Mental Finger Breadths: 3 Mouth Opening Finger Breadths: 3 ROM/Head Extension: Full Lungs: Clear to Auscultation, Normal Respiratory Effort Cardiovascular: Regular Rate, Regular Rhythm - Lab Values: Laboratory Last Values WBC 6.76 K/mm3 (3.98-10.04) 01/23/21 03:20 RBC 4.00 M/mm3 (3.98-5.22) 01/23/21 03:20 Hgb 11.1 gm/dl (11.2-15.7) L 01/23/21 03:20 Hct 34.2 % (34.1-44.9) 01/23/21 03:20 MCV 85.5 fl (79.4-94.8) 01/23/21 03:20 MCH 27.8 pg (25.6-32.2) 01/23/21 03:20 MCHC 32.5 g/dl (32.2-35.5) 01/23/21 03:20 RDW Std Deviation 46.8 fL (36.4-46.3) H 01/23/21 03:20 Plt Count 220 K/mm3 (182-369) 01/23/21 03:20 MPV 10.9 fl (9.4-12.3) 01/23/21 03:20 Neut % (Auto) 51.6 % (34.0-71.1) 01/23/21 03:20 Lymph % (Auto) 35.9 % (19.3-51.7) 01/23/21 03:20 [place] % (Auto) 8.7 % (4.7-12.5) 01/23/21 03:20 Eos % (Auto) 1.3 (0.7-5.8) 01/23/21 03:20 Baso % (Auto) 0.4 % (0.1-1.2) 01/23/21 03:20 Neut # (Auto) 3.48 K/mm3 (1.56-6.13) 01/23/21 03:20 Lymph # (Auto) 2.43 K/mm3 (1.18-3.74) 01/23/21 03:20 [place] # (Auto) 0.59 K/mm3 (0.24-0.36) H 01/23/21 03:20 Eos # (Auto) 0.09 K/mm3 (0.04-0.36) 01/23/21 03:20 Baso # (Auto) 0.03 K/mm3 (0.01-0.08) 01/23/21 03:20 Blood Type A POSITIVE 01/23/21 03:20 Gel Antibody Screen Negative 01/23/21 03:20 - Allergies Allergies/Adverse Reactions: Allergies Allergy/AdvReac Type Severity Reaction Status Date / Time No Known Allergies Allergy Verified 01/23/21 03:04 - Blood Blood Available: No - Acknowledgements Anesthesia Type Planned: Epidural Pt an Appropriate Candidate for the Planned Anesthesia: Yes Alternatives and Risks of Anesthesia Discussed w Pt/Guardian: Yes Pt/Guardian Understands and Agrees with Anesthesia Plan: Yes PreAnesthesia Questionnaire - Past Health History Medical/Surgical History: Denies Medical/Surgical History HEENT History: Reports: Sinusitis Cardiovascular History: Reports: None Respiratory History: Reports: Other (See Below) Other Respiratory History: +) COVID Gastrointestinal History: Reports: GERD Genitourinary History: Reports: UTI, Recurrent 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 Psychiatric History: Reports: Anxiety, Depression Endocrine/Metabolic History: Reports: Obesity/BMI 30+ Oncologic (Cancer) History: Reports: None - Infectious Disease History Infectious Disease History: Reports: Novel Coronavirus - SUBSTANCE USE Tobacco Use Status *Q: Never Tobacco User Tobacco Use Within Last Twelve Months: No Second Hand Smoke Exposure: No Days Per Week of Alcohol Use: 0 Recreational Drug Use History: No - HOME MEDS Home Medications: Home Meds No122/Iron/Folic Acid [ Multi Tablet] 1 each PO DAILY 01/20/21 [History] - CURRENT (IN HOUSE) MEDS Current Meds: Current Medications Acetaminophen (Acetaminophen 325 Mg Tab) 650 mg PO Q4H PRN PRN Reason: Pain (Mild 1-3) and fever Calcium Carbonate/Glycine (Calcium Carbonate 500 Mg Tab.Chew) 1,000 mg PO Q2H PRN PRN Reason: Indigestion Diphenhydramine HCl (Diphenhydramine 50 Mg/Ml Sdv) 25 mg IVPUSH Q6H PRN PRN Reason: pruritis Ephedrine Sulfate (Ephedrine 50 Mg/Ml Sdv) 5 mg IVPUSH ASDIRECTED PRN PRN Reason: Hypotension Fentanyl (Fentanyl 100 Mcg/2 Ml Sdv) 100 mcg EPIDUR Q3H PRN PRN Reason: Pain Last Admin: 01/23/21 07:47 Dose: 100 mcg Documented by: Fentanyl/Bupivacaine HCl (Bupivacaine/Fentanyl/Ns 100 Ml Bag) 100 ml EPIDUR ASDIRECTED PRN PRN Reason: Pain Last Admin: 01/23/21 07:50 Dose: 100 ml Documented by: Oxytocin/Lactated Ringer's (Pitocin In Lr 10 Units/1,000 Ml) 10 unit in 1,000 mls @ 500 mls/hr IV .CONTINUOUS JAYDE Lactated Ringer's (Ringers, Lactated) 1,000 mls @ 100 mls/hr IV ASDIRECTED JAYDE Last Admin: 01/23/21 07:51 Dose: 100 mls/hr Documented by: Oxytocin/Lactated Ringer's (Pitocin In Lr 10 Units/1,000 Ml) 10 unit in 1,000 mls @ 12 mls/hr IV TITRATE JAYDE; Protocol Last Titration: 01/23/21 06:45 Dose: 10 munits/min, 60 mls/hr Documented by: Nalbuphine HCl (Nalbuphine 10 Mg/1 Ml Vial) 10 mg IVPUSH Q2H PRN PRN Reason: Pain Ondansetron HCl (Ondansetron 4 Mg/2 Ml Sdv) 4 mg IVPUSH Q4H PRN PRN Reason: Nausea/Vomiting Sodium Chloride (Sodium Chloride 0.9% 10 Ml Syringe) 10 ml FLUSH ASDIRECTED PRN PRN Reason: Keep Vein Open Discontinued Medications Lidocaine HCl (Lidocaine 1% 50 Ml Mdv) 50 ml INJECT ONETIME ONE Stop: 01/23/21 03:06
--- NOTE | 2021-01-23 17:44 | PCM.SN.2 ---
- Free Text/Narrative Note: Delivery note: Stage I: Ester is a 30-year-old 3 para 2-0-0-2 female who is admitted on the a.m. of 01/23/2021 39-4/7 weeks gestational age with an PHILIP of 01/26/2021 for induction of labor. She underwent Pitocin induction of labor followed by AROM augmentation. She may still progress until 4 cm then very rapid progress to complete. At approximately 1420 hrs. patient became complete and felt pressure. She had an epidural in place with good results. heart tones remained reassuring throughout the labor course. Stage II: At 1427 hrs. on 01/23/2021 Ester delivered a viable, knowles, female infant named Tamra Frey in a right occiput anterior position over an intact perineum. Photos were delivered anterior and posterior without problems. The baby was placed on mom's abdomen, dried with warm blanket. Nose and mouth were bulb suction. The umbilical cord is allowed to pulsate for approximately 3 minutes and was clamped x2 and cut by the baby's father Hector. Umbilical cord had three vessels. Cord blood was obtained. Baby weighed 3630 g (8 pounds 0 ounces post (, had a length of 20.0 inches and scores of eight and nine. Stage III: Ester delivered the placenta at 1433 hrs. in a [place] presentation. It appeared intact and complete and was discarded per patient desire. Estimated blood loss was 100 cc. Patient plans to breast-feed. Condition: Good. Time Documentation
[2021-01-23] MEDS ORDERED: Docusate Sodium 100 MG Cap PO PRN (17:46)
[2021-01-23] MEDS ORDERED: Witch Hazel Medicated Pads 40/Jar TOP PRN (17:46)
[2021-01-23] MEDS ORDERED: Benzocaine/Menthol 20%-0.5% Spray 78 GM Cannister TOP PRN (17:46)
[2021-01-23] MEDS ORDERED: Bupivacaine 0.25% 10 ML SDV ONE (20:00)
[2021-01-23] MEDS: Ibuprofen 600 MG Tab PO PRN (20:49)
[2021-01-24] MEDS: Ibuprofen 600 MG Tab PO PRN (06:32)
--- NOTE | 2021-01-24 07:49 | PCM.DCSUM1 ---
Discharge Summary - Hospital Course Diagnosis: Stroke: No - Discharge Data Discharge Date: 01/24/21 Discharge Disposition: Home, Self-Care 01 Condition: Good - Referral to Home Health Primary Care Physician: Ford Cannon MD - Patient Summary/Data Hospital Course: Stage I: Ester is a 30-year-old 3 para 2-0-0-2 female who is admitt ed on the a.m. of 01/23/2021 39-4/7 weeks gestational age with an PHILIP of 01/26/2021 for induction of labor. She underwent Pitocin induction of labor followed by AROM augmentation. She may still progress until 4 cm then very rapid progress to complete. At approximately 1420 hrs. patient became complete and felt pressure. She had an epidural in place with good results. heart tones remained reassuring throughout the labor course. Stage II: At 1427 hrs. on 01/23/2021 Ester delivered a viable, knowles, female infant named Tamra Frey in a right occiput anterior position over an intact perineum. Photos were delivered anterior and posterior without problems. The baby was placed on mom's abdomen, dried with warm blanket. Nose and mouth were bulb suction. The umbilical cord is allowed to pulsate for approximately 3 minutes and was clamped x2 and cut by the baby's father Hector. Umbilical cord had three vessels. Cord blood was obtained. Baby weighed 3630 g (8 pounds 0 ounces post (, had a length of 20.0 inches and scores of eight and nine. Stage III: Ester delivered the placenta at 1433 hrs. in a Cedeno presentation. It appeared intact and complete and was discarded per patient desire. Estimated blood loss was 100 cc. Patient plans to breast-feed. Condition: Good. Ready and desiring discharge PPD1 - Patient Instructions Diet: Usual Diet as Tolerated Activity: No Strenuous Activities Driving: May Drive Today Notify Provider of: Fever, Increased Pain, Swelling and Redness, Drainage, Nausea and/or Vomiting - Discharge Plan *PRESCRIPTION DRUG MONITORING PROGRAM REVIEWED*: No *COPY OF PRESCRIPTION DRUG MONITORING REPORT IN PATIENT PORFIRIO: No Home Medications: Home Meds No122/Iron/Folic Acid [ Multi Tablet] 1 each PO DAILY 01/20/21 [History] Referrals: Arnold,Ford F, MD [Primary Care Provider] - (2 weeks) - Discharge Summary/Plan Comment DC Time >30 min.: No Total # of Minutes for Discharge Time: 15 - Patient Data Vitals - Most Recent: Last Vital Signs Temp 36.8 C 01/24/21 03:30 Pulse 86 01/24/21 03:30 Resp 15 01/24/21 03:30 BP 116/67 01/24/21 03:30 Pulse Ox 94 L 01/24/21 03:30 Weight - Most Recent: 109.724 kg Lab Results - Last 24 hrs: Laboratory Results - last 24 hr 01/23/21 Range/Units 03:20 RPR Non-reactive (NONREACTIVE) Med Orders - Current: Current Medications Acetaminophen (Acetaminophen 325 Mg Tab) 650 mg PO Q4H PRN PRN Reason: mild pain or fever Benzocaine/Menthol (Benzocaine/Menthol 20%-0.5% [place] 78 Gm Cannister) 0 gm TOP ASDIRECTED PRN PRN Reason: Perineal Comfort Measure Docusate Sodium (Docusate Sodium 100 Mg Cap) 100 mg PO BID PRN PRN Reason: Constipation Last Admin: 01/24/21 06:32 Dose: 100 mg Documented by: Ibuprofen (Ibuprofen 600 Mg Tab) 600 mg PO Q4H PRN PRN Reason: Mild pain or fever Last Admin: 01/24/21 06:32 Dose: 600 mg Documented by: Prenat Multivit/Solar [employer] Installation Crew Member/Iron/Folic Ac ( Multivitamin With Calcium/Folic Acid/Iron Tab) 1 each PO DAILY JAYDE Witch Shantal (Witch Shantal Medicated Pads 40/Jar) 1 pad TOP ASDIRECTED PRN PRN Reason: Perineal Comfort Measure Discontinued Medications Acetaminophen (Acetaminophen 325 Mg Tab) 650 mg PO Q4H PRN PRN Reason: Pain (Mild 1-3) and fever Calcium Carbonate/Glycine (Calcium Carbonate 500 Mg Tab.Chew) 1,000 mg PO Q2H PRN PRN Reason: Indigestion Diphenhydramine HCl (Diphenhydramine 50 Mg/Ml Sdv) 25 mg IVPUSH Q6H PRN PRN Reason: pruritis Ephedrine Sulfate (Ephedrine 50 Mg/Ml Sdv) 5 mg IVPUSH ASDIRECTED PRN PRN Reason: Hypotension Fentanyl (Fentanyl 100 Mcg/2 Ml Sdv) 100 mcg EPIDUR Q3H PRN PRN Reason: Pain Last Admin: 01/23/21 07:47 Dose: 100 mcg Documented by: Fentanyl/Bupivacaine HCl (Bupivacaine/Fentanyl/Ns 100 Ml Bag) 100 ml EPIDUR ASDIRECTED PRN PRN Reason: Pain Last Admin: 01/23/21 07:50 Dose: 100 ml Documented by: Oxytocin/Lactated Ringer's (Pitocin In Lr 10 Units/1,000 Ml) 10 unit in 1,000 mls @ 500 mls/hr IV .CONTINUOUS JAYDE Last Admin: 01/23/21 15:18 Dose: 500 mls/hr Documented by: Lactated Ringer's (Ringers, Lactated) 1,000 mls @ 100 mls/hr IV ASDIRECTED JAYDE Last Admin: 01/23/21 10:23 Dose: 100 mls/hr Documented by: Oxytocin/Lactated Ringer's (Pitocin In Lr 10 Units/1,000 Ml) 10 unit in 1,000 mls @ 12 mls/hr IV TITRATE JAYDE; Protocol Last Titration: 01/23/21 06:45 Dose: 10 munits/min, 60 mls/hr Documented by: Lidocaine HCl (Lidocaine 1% 50 Ml Mdv) 50 ml INJECT ONETIME ONE Stop: 01/23/21 03:06 Nalbuphine HCl (Nalbuphine 10 Mg/1 Ml Vial) 10 mg IVPUSH Q2H PRN PRN Reason: Pain Ondansetron HCl (Ondansetron 4 Mg/2 Ml Sdv) 4 mg IVPUSH Q4H PRN PRN Reason: Nausea/Vomiting Last Admin: 01/23/21 10:20 Dose: 4 mg Documented by: Sodium Chloride (Sodium Chloride 0.9% 10 Ml Syringe) 10 ml FLUSH ASDIRECTED PRN PRN Reason: Keep Vein Open
--- NOTE | 2021-01-24 08:34 | PCM48HPAN ---
Post Anesthesia Note - EVALUATION WITHIN 48HRS OF ANESTHETIC Vital Signs in Normal Range: Yes Patient Participated in Evaluation: Yes Respiratory Function Stable: Yes Airway Patent: Yes Cardiovascular Function Stable: Yes Hydration Status Stable: Yes Pain Control Satisfactory: Yes Nausea and Vomiting Control Satisfactory: Yes Mental Status Recovered: Yes Vital Signs: Last Vital Signs Temp 98.2 F 01/24/21 03:30 Pulse 86 01/24/21 03:30 Resp 15 01/24/21 03:30 BP 116/67 01/24/21 03:30 Pulse Ox 94 L 01/24/21 03:30 - COMMENTS/OBSERVATIONS Free Text/Narrative:: Patient resting in bed when visiting with patient. Patient stated that she was "very happy" with her epidural and labor experience. Patient complained of mild back pain in epidural placement site but is controlled and has not gotten worse. Discussed signs and symptoms of infection, post-dural puncture headaches, post- depression, and if patient experiences increased back discomfort. Encouraged patient if any of those signs or symptoms develop to contact OB/Anesthesia so the patient can be treated accordingly if needed. Patient verbalized understanding. Patient did not voice any questions or concerns at this time. Jessica London CRNA
[2021-01-24] MEDS ORDERED: Prenatal Multivitamin with Calcium/Folic Acid/Iron Tab PO SCH (09:00)
[2021-01-24 10:22] VITALS: PULSE 74
[2021-01-24 15:53] VITALS: BP 115/73
== END 2021-01-24 16:03 | disposition home or self-care (01) | DRG 560 ==
LOC: JD.OB 02:52 → OBSVTOIN 14:27 → JD.OB 14:28
PROVIDERS: ADMIT Obstetrics & Gynecology; ATTEND Obstetrics & Gynecology
PROC: 10E0XZZ Delivery of Products of Conception, External Approach (ICD-10-PCS; principal; 2021-01-23)
PROC: 3E033VJ Introduction of Other Hormone into Peripheral Vein, Percutaneous Approach (ICD-10-PCS; 2021-01-23)
PROC: 10907ZC Drainage of Amniotic Fluid, Therapeutic from Products of Conception, Via Natural or Artificial Opening (ICD-10-PCS; 2021-01-23)
PROC: 3E0R3BZ Introduction of Anesthetic Agent into Spinal Canal, Percutaneous Approach (ICD-10-PCS; 2021-01-23)
DX: O98.52 Other viral diseases complicating childbirth (principal); U07.1 COVID-19; Z3A.39 39 weeks gestation of pregnancy; Z37.0 Single live birth; O99.214 Obesity complicating childbirth; E66.9 Obesity, unspecified
CPT/HCPCS: 01967; 36415; 51702; 59025; 59409; 85025; 86592; 86850; 86900; 86901; A9270-GY; J2405; J2590; J3010; J3490; J7120

== ENCOUNTER 2021-01-28 02:05 | Emergency (ER) | payer BC ==
[2021-01-28 02:23] VITALS: BP 155/93; PULSE 52
--- NOTE | 2021-01-28 02:36 | EDM.PDOC ---
ED HPI GENERAL MEDICAL PROBLEM - General Chief Complaint: Respiratory Problem Stated Complaint: TROUBLE BREATHING Time Seen by Provider: 01/28/21 02:28 Source of Information: Reports: Patient History Limitations: Reports: No Limitations - History of Present Illness INITIAL COMMENTS - FREE TEXT/NARRATIVE: Patient is a 30-year-old female who is complaining of anxiety symptoms such as she is having trouble breathing every time she tries to fall sleep tonight and often starts each episode with a cough. She was diagnosed with Covid approximately 3 weeks ago and is 1 week . She is not breast-feeding her baby. She is complaining of epigastric pain that radiates to her back. This started yesterday and seems worse tonight. She has never had these symptoms before. She denies currently being short of breath and is satting 100% on room air. She is not having any dyspnea with exertion. She is not been coughing other than when she wakes up from falling asleep. She denies any fever or chills any body aches any loss of smell or taste. She is tearful and sad that she is left her baby at home for her current symptoms. Duration: Day(s): (2), Getting Worse Location: Reports: Abdomen Quality: Reports: Ache, Dull Severity: Moderate Improves with: Reports: None Worsens with: Reports: None Associated Symptoms: Reports: Shortness of Breath - Related Data Allergies Allergy/AdvReac Type Severity Reaction Status Date / Time No Known Allergies Allergy Verified 01/23/21 03:04 Home Meds: Home Meds No122/Iron/Folic Acid [ Multi Tablet] 1 each PO DAILY 01/20/21 [History] Past Medical History - Past Health History Medical/Surgical History: Denies Medical/Surgical History HEENT History: Reports: Sinusitis Cardiovascular History: Reports: None Respiratory History: Reports: Other (See Below) Other Respiratory History: +) COVID Gastrointestinal History: Reports: GERD Genitourinary History: Reports: UTI, Recurrent [employer] History: Reports: Psychiatric History: Reports: Anxiety, Depression Endocrine/Metabolic History: Reports: Obesity/BMI 30+ Oncologic (Cancer) History: Reports: None - Infectious Disease History Infectious Disease History: Reports: Novel Coronavirus Social & Family History - Family History Family Medical History: No Pertinent Family History - Tobacco Use Tobacco Use Status *Q: Unknown Ever Used Tobacco - Caffeine Use Caffeine Use: Reports: Coffee ED ROS GENERAL - Review of Systems Review Of Systems: Comprehensive ROS is negative, except as noted in HPI. Constitutional: Reports: No Symptoms. Denies: Fever, Chills, Malaise, Diaphoresis HEENT: Reports: No Symptoms Respiratory: Reports: Shortness of Breath Cardiovascular: Reports: No Symptoms. Denies: Chest Pain, Dyspnea on Exertion GI/Abdominal: Reports: Abdominal Pain. Denies: Anorexia, Black Stool, Bloody Stool, Distension : Reports: No Symptoms ED EXAM, GENERAL - Physical Exam Exam: See Below Exam Limited By: No Limitations General Appearance: Alert, No Apparent Distress, Anxious Head: Normocephalic Neck: Normal Inspection Respiratory/Chest: No Respiratory Distress, Lungs Clear, Normal Breath Sounds. No: Respiratory Distress, Decreased Breath Sounds Cardiovascular: Regular Rate, Rhythm, No Edema GI/Abdominal: Soft, Tender, Other (Patient is tender in the epigastrium. This pain does radiate to her back.) Back Exam: Normal Inspection. No: CVA Tenderness (L), CVA Tenderness (R) Extremities: Normal Inspection Neurological: Alert, Oriented Psychiatric: Tearful Skin Exam: Warm, Dry Course - Vital Signs Text/Narrative:: Patient received a GI cocktail which had no beneficial effect on her. Her lab work is negative for her pancreatic and liver enzymes. I still feel this is most likely cholecystitis. Patient feels that I am erroneous in my assessment of her abdominal pain and I have offered to bring her back later today to get an ultrasound which she is refusing and she also does not want to be discharged with a prescription for pain medication. She has stated to me that she will discuss things with her then decide what to do. Last Recorded V/S: Last Vital Signs Temp 98.0 F 01/28/21 02:17 Pulse 52 L 01/28/21 02:17 Resp 17 01/28/21 02:17 BP 155/93 H 01/28/21 02:17 Pulse Ox 100 01/28/21 02:17 - Orders/Labs/Meds Labs: Laboratory Tests 01/28/21 01/28/21 Range/Units 02:45 02:45 WBC 7.69 (3.98-10.04) K/mm3 RBC 3.86 L (3.98-5.22) M/mm3 Hgb 10.6 L (11.2-15.7) gm/dl Hct 33.6 L (34.1-44.9) % MCV 87.0 (79.4-94.8) fl MCH 27.5 (25.6-32.2) pg MCHC 31.5 L (32.2-35.5) g/dl RDW Std Deviation 47.5 H (36.4-46.3) fL Plt Count 285 (182-369) K/mm3 MPV 11.1 (9.4-12.3) fl Neutrophils % (Manual) 64 H (40-60) % Band Neutrophils % 0 (0-10) % Lymphocytes % (Manual) 27 (20-40) % Atypical Lymphs % 0 % Monocytes % (Manual) 7 (2-10) % Eosinophils % (Manual) 2 (0.7-5.8) % Basophils % (Manual) 0 L (0.1-1.2) Toxic Granulation Few Platelet Estimate Adequate RBC Morph Comment Normal Sodium 140 (136-145) mEq/L Potassium 4.4 (3.5-5.1) mEq/L Chloride 105 (98-107) mEq/L Carbon Dioxide 26 (21-32) mEq/L Anion Gap 13.4 (5-15) BUN 12 (7-18) mg/dL Creatinine 0.8 (0.55-1.02) mg/dL Est Cr Clr Drug Dosing 81.33 mL/min Estimated GFR (MDRD) > 60 (>60) mL/min BUN/Creatinine Ratio 15.0 (14-18) Glucose 102 H (70-99) mg/dL Calcium 8.3 L (8.5-10.1) mg/dL Total Bilirubin 0.2 (0.2-1.0) mg/dL AST 33 (15-37) U/L ALT 50 (14-59) U/L Alkaline Phosphatase 72 (46-116) U/L Total Protein 6.0 L (6.4-8.2) g/dl Albumin 2.6 L (3.4-5.0) g/dl Globulin 3.4 gm/dL Albumin/Globulin Ratio 0.8 L (1-2) Lipase 97 (73-393) U/L Meds: Medications Discontinued Medications Generic Name Dose Route Start Last Admin Trade Name Freq PRN Reason Stop Dose Admin Al Hydroxide/Mg Hydroxide 30 0 ml 11/07/21 02:37 01/28/21 02:46 ml/ Lidocaine HCl 15 ml PO 01/28/21 02:38 45 ml ONETIME ONE Administration Departure - Departure Time of Disposition: 04:26 Disposition: Home, Self-Care 01 Condition: Good Clinical Impression: Epigastric abdominal pain - Discharge Information Instructions: Abdominal Pain, Adult, [id number] Referrals: PCP,None [Primary Care Provider] - Forms: ED Department Discharge Additional Instructions: Low-fat diet with small meals only. Return to ER if symptoms are worse. Follow-up with PCP for additional work-up and treatment if symptoms continue. Sepsis Event Note (ED) - Evaluation Sepsis Screening Result: No Definite Risk - Focused Exam Vital Signs: Vital Signs Temp Pulse Resp BP Pulse Ox 01/28/21 02:17 98.0 F 52 L 17 155/93 H 100
[2021-01-28] MEDS ORDERED: Alum Hydrox/Mag Hydrox/Simeth 30 ML, Lidocaine 2% 15 ML PO ONE ×2 (02:37)
== END 2021-01-28 04:33 | disposition home or self-care (01) ==
LOC: JD.ED 02:05
DX: R10.13 Epigastric pain (principal); E66.9 Obesity, unspecified; Z68.41 Body mass index [BMI] 40.0-44.9, adult; Z86.16 Personal history of COVID-19
CPT/HCPCS: 36415; 80053; 83690; 85007; 85027; 99284; A9270

== ENCOUNTER 2022-08-11 11:58 | Emergency (ER) | payer BC ==
[2022-08-11 12:16] VITALS: BP 126/81; PULSE 76
== END 2022-08-11 13:19 | disposition home or self-care (01) ==
LOC: JD.ED 11:58
DX: M79.672 Pain in left foot (principal); E66.9 Obesity, unspecified; Z68.38 Body mass index [BMI] 38.0-38.9, adult; Z86.16 Personal history of COVID-19
CPT/HCPCS: 73630-26-LT; 73630-LT; 99283

== ENCOUNTER 2022-12-13 12:16 | Emergency (ER) | payer BC ==
[2022-12-13 12:27] VITALS: BP 136/89; PULSE 82
[2022-12-13] MEDS ORDERED: Lidocaine 1% 10 ML MDV INJECT ONE (12:39)
== END 2022-12-13 13:30 | disposition home or self-care (01) ==
LOC: JD.ED 12:16
DX: S61.412A Laceration without foreign body of left hand, initial encounter (principal); K21.9 Gastro-esophageal reflux disease without esophagitis; E66.9 Obesity, unspecified; Z68.39 Body mass index [BMI] 39.0-39.9, adult; W45.8XXA Other foreign body or object entering through skin, initial encounter
CPT/HCPCS: 12002; 99282; 99283; J3490